=== PATIENT | female | born 1930 | race Caucasian/White ===

== ENCOUNTER 2017-01-17 11:58 | Emergency (ER) | payer MEDICARE, OTHER ==
[~2017-01-17] VITALS: Ht 152.4 cm; Wt 49.9 kg
[~2017-01-17 11:58] MED LIST: AMLODIPINE BESYL5 MG PO; BETAMETHASONE V15 GM TOP; BISCOLAX10 MG PR; CALCITRIOL0.25 MCG PO; CALCIUM ACETAT667 M1 NG; CALCIUM ACETAT667 M1 PO; CALCIUM ACETAT667 MG PO; CEPHALEXIN500 MG PO; CIPRO500 MG PO; CITRACAL + BON1 EACH PO; CITRACAL PO; HYDRALAZINE HCL25 MG PO; K-TAB10 MEQ PO; KLOR-CON SPRIN10 MEQ PO; LEVOTHROID75 MCG PO; LEVOTHYROXINE50 MCG PO; LIPITOR10 MG PO; LISINOPRIL10 MG PO; LISINOPRIL5 MG PO; MAG6464 MG PO; MAGNESIUM27 MG PO; MAGNESIUM30 MG PO; METOPROLOL SUC100 MG PO; METOPROLOL TART50 MG; MICRO-K10 MEQ PO; MILK OF MA400 MG/5 M PO; MIRALAX119 GM PO; MIRTAZAPINE15 MG PO; MONTELUKAST SOD10 MG PO; MULTIVITAMINS1 EAC7 PO; NORCO 5-325 TA1 EACH PO; NORVASC5 MG PO; OMEGA-3 + D SO1 EACH PO; PRILOSEC20 MG PO; PROPRANOLOL HCL60 M1 PO; PROPRANOLOL PO; QUETIAPINE FUMA25 MG PO; QUETIAPINE FUMA50 MG PO; RANITIDINE HCL150 MG PO; REMERON15 MG PO; ROCALTROL0.25 MCG PO; SEROQUEL25 MG PO; TOPROL XL50 MG; TRAMADOL HCL50 MG PO; TRAZODONE HCL50 MG PO; TYLENOL325 MG PO; [UNRECOGNIZED DRUG - OTHER] PO
--- OUTSIDE RECORDS SUMMARY | 2017-01-17 12:37 | XMS ---
Demographics + + + | Address | [address] | | | [address] | | | [place] [address] | + + + | Preferred Language | Unknown | + + + | Marital Status | Unknown | + + + | Buddhism Affiliation | Unknown | + + + | Race | Unknown | + + + | Ethnic Group | Unknown | + + + Author + + + | Author | [facility] | + + + | Organization | [facility] | + + + | Address | 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 | 177185504 | | | hypothyroi | | | | | | | | dism | | | | | | +---------+ + + +--------+ + + | Problem | Hypertensi | | I10 | | Active | 21535648 | | | on | | | | | | +---------+ + + +--------+ + + | 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 | 40152910 | | | hatemia | | | | | | +---------+ + + +--------+ + + | Problem | Hypertensi | I11.9 | | | Active | 04630655 | | | ve | | | | | | | | arterioscl | | | | | | | | erotic | | | | | | | | cardiovasc | | | | | | | | ular | | | | | | | | disease | | | | | | +---------+ + + +--------+ + + | Problem | CKD | N18.3 | | | Active | 120325658 | | | (chronic | | | | | | | | kidney | | | | | | | | disease), | | | | | | | | stage 3 | | | | | | | | (moderate) | | | | | | +---------+ + + +--------+ + + | Problem | 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 | 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 | | | hypoparath | | | | | | | | yroidism | | | | | | +---------+ + + +--------+ + + | Problem | Gastroesop | K21.9 | | | Active | 853181696 | | | hageal | | | | | | | | reflux | | | | | | | | disease | | | | | | | | without | | | | | | | | esophagiti | | | | | | | | s | | | | | | +---------+ + + +--------+ + + | Problem | Impaired | | R73.01 | | Active | 377511111 | | | fasting | | | | | | | | glucose | | | | | | +---------+ + + +--------+ + + ALLERGIES Unknown Allergies SOCIAL HISTORY No smoking Hx information available PLAN OF CARE VITAL SIGNS MEDICATIONS Unknown Medications RESULTS No Results PROCEDURES No Known procedures IMMUNIZATIONS No Known Immunizations"
--- OUTSIDE RECORDS SUMMARY | 2017-01-17 12:37 | XMS ---
Demographics + + + | Address | [address] | | | [address] | | | [place] [address] | + + + | Preferred Language | Unknown | + + + | Marital Status | Unknown | + + + | Church Affiliation | Unknown | + + + | Race | Unknown | + + + | Ethnic Group | Unknown | + + + Author + + + | Author | [facility] | + + + | Organization | [facility] | + + + | Address | 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.51 | | Active | 1667390 | | | ia | | | | | | +---------+ + + +--------+ + + | 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 | 099467516 | | | hypothyroi | | | | | | | | dism | | | | | | +---------+ + + +--------+ + + | Problem | Hypertensi | | I10 | | Active | 85050145 | | | on | | | | | | +---------+ + + +--------+ + + | 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 | 89835663 | | | hatemia | | | | | | +---------+ + + +--------+ + + | Problem | Hypertensi | I11.9 | | | Active | 50262886 | | | ve | | | [...] | N18.3 | | | Active | 366469284 | | | (chronic | | | [...] | | E20.8 | | Active | 67488982 | | | hypoparath | | | | | | | | yroidism | | | | | | +---------+ + + +--------+ + + | Problem | Gastroesop | K21.9 | | | Active | 156638736 | | | hageal | | | [...] | | R73.01 | | Active | 489100913 | | | fasting | | | | | | | | glucose | | | | | | +---------+ + + +--------+ + + ALLERGIES Unknown Allergies SOCIAL HISTORY No smoking Hx information available PLAN OF CARE VITAL SIGNS MEDICATIONS + + + + +--------+ + +--------+ | Medicati | Instruct | Dosage | Frequenc | Start | End Date | Duration | Status | | on | ions | | y | Date | | | | + + + + +--------+ + +--------+ | Ranitidi | Orally | 1 tablet | 12h | | | 30 days | Active | | ne HCl | Twice a | | | | | | | | 150 MG | day | | | | | | | + + + + +--------+ + +--------+ | Calcitri | Orally | 1 | 24h | | | 30 days | Active | | ol 0.25 | Once a | capsule | | | | | | | MCG | day | | | | | | | + + + + +--------+ + +--------+ | Toprol | Orally | 1 tablet | 24h | | | 30 days | Active | | XL 100 | Once a | | | | | | | | MG | day | | | | | | | + + + + +--------+ + +--------+ RESULTS No Results PROCEDURES No Known procedures IMMUNIZATIONS No Known Immunizations"
--- OUTSIDE RECORDS SUMMARY | 2017-01-17 12:37 | XMS ---
Demographics + + + | Address | [address] | | | [address] | | | [place] [address] | + + + | Preferred Language | Unknown | + + + | Marital Status | Unknown | + + + | Caodaism Affiliation | Unknown | + + + | Race | Unknown | + + + | Ethnic Group | Unknown | + + + Author + + + | Author | [facility] | + + + | Organization | [facility] | + + + | Address | 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.51 | | Active | 7709639 | | | ia | | | | | | +---------+ + + +--------+ + + | 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 | 082755454 | | | hypothyroi | | | | | | | | dism | | | | | | +---------+ + + +--------+ + + | Problem | Hypertensi | | I10 | | Active | 55079998 | | | on | | | | | | +---------+ + + +--------+ + + | 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 | 34047951 | | | hatemia | | | | | | +---------+ + + +--------+ + + | Problem | Hypertensi | I11.9 | | | Active | 50793726 | | | ve | | | [...] | N18.3 | | | Active | 415796756 | | | (chronic | | | [...] | | E20.8 | | Active | 93333349 | | | hypoparath | | | | | | | | yroidism | | | | | | +---------+ + + +--------+ + + | Problem | Gastroesop | K21.9 | | | Active | 920734916 | | | hageal | | | [...] | | R73.01 | | Active | 371197644 | | | fasting | | | | | | | | glucose | | | | | | +---------+ + + +--------+ + + ALLERGIES Unknown Allergies SOCIAL HISTORY No smoking Hx information available PLAN OF CARE VITAL SIGNS MEDICATIONS Unknown Medications RESULTS No Results PROCEDURES No Known procedures IMMUNIZATIONS No Known Immunizations"
--- OUTSIDE RECORDS SUMMARY | 2017-01-17 12:37 | XMS ---
Demographics + + + | Address | [address] | | | [address] | | | [place] [address] | + + + | Preferred Language | Unknown | + + + | Marital Status | Unknown | + + + | Taoist Affiliation | Unknown | + + + | Race | Unknown | + + + | Ethnic Group | Unknown | + + + Author + + + | Author | [facility] | + + + | Organization | [facility] | + + + | Address | 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.51 | | Active | 2750768 | | | ia | | | | | | +---------+ + + +--------+ + + | 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 | 632257255 | | | hypothyroi | | | | | | | | dism | | | | | | +---------+ + + +--------+ + + | Problem | Hypertensi | | I10 | | Active | 31782923 | | | on | | | | | | +---------+ + + +--------+ + + | 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 | 93997408 | | | hatemia | | | | | | +---------+ + + +--------+ + + | Problem | Hypertensi | I11.9 | | | Active | 85756621 | | | ve | | | [...] | N18.3 | | | Active | 503893914 | | | (chronic | | | [...] | | E20.8 | | Active | 53174397 | | | hypoparath | | | | | | | | yroidism | | | | | | +---------+ + + +--------+ + + | Problem | Gastroesop | K21.9 | | | Active | 665587792 | | | hageal | | | [...] | | R73.01 | | Active | 498780227 | | | fasting | | | | | | | | glucose | | | | | | +---------+ + + +--------+ + + ALLERGIES + + + + +--------+ | Substance | Reaction | Event Type | Date | Status | + + + + +--------+ | Trazodone | GI | Drug Allergy | 27 Winston, 2017 | Active | + + + + +--------+ | Codeine | GI | Drug Allergy | Oct, | Active | + + + + +--------+ SOCIAL HISTORY No smoking Hx information available PLAN OF CARE + +---------+ | Activity | Details | + +---------+ +---+ | | +---+ + + + | Follow Up | 1 Week Reason:null | + + + | Pending Test | Urinalysis w/ C + S if Indicated | + + + VITAL SIGNS + + + + | Height | 62 in | 2016-10-29 | + + + + | Weight | 105.1 lbs | 2016-10-29 | + + + + | BMI | 19.22 kg/m2 | 2016-10-29 | + + + + | Heart Rate | 72 /min | 2016-10-29 | + + + + | Blood pressure systolic | 156 mm Hg | 2016-10-29 | + + + + | Blood pressure diastolic | 60 mm Hg | 2016-10-29 | + + + + MEDICATIONS + + + + + + + +--------+ | Medicati | Instruct | Dosage | Frequenc | Start | End Date | Duration | Status | | on | ions | | y | Date | | | | + + + + + + + +--------+ | Amlodipi | Orally | 1 tablet | 24h | | | | Active | | ne | Once a | | | | | | | | Besylate | day | | | | | | | | 5 MG | | | | | | | | + + + + + + + +--------+ | Ranitidi | Orally | 1 tablet | 12h | | | | Active | | ne HCl | Twice a | | | | | | | | 150 MG | day | | | | | | | + + + + + + + +--------+ | Zofran 8 | Orally | 1 tablet | | 01 Winston, | | 10 days | Active | | MG | three | | | 2017 | | | | | | times a | | | | | | | | | day prn | | | | | | | | | nausea | | | | | | | + + + + + + + +--------+ | Toprol | Orally | 1 tablet | 24h | | | | Active | | XL 100 | Once a | | | | | | | | MG | day | | | | | | | + + + + + + + +--------+ | Levothyr | Orally | 1 tablet | 24h | | | | Active | | oxine | Once a | every | | | | | | | Sodium | day | morning | | | | | | | 50 MCG | | on an | | | | | | | | | empty | | | | | | | | | stomach | | | | | | + + + + + + + +--------+ | Ciproflo | Orally | 1 tablet | 12h | | | | Active | | xacin | every 12 | | | | | | | | HCl 250 | hrs | | | | | | | | MG | | | | | | | | + + + + + + + +--------+ | Calcium | Orally | 1 tablet | | | 22 Jamshid, | 30 days | Active | | Acetate | two | | | | 2018 | | | | (Phos | times a | | | | | | | | Binder) | day with | | | | | | | | 667 MG | a meal | | | | | | | + + + + + + + +--------+ | Calcitri | Orally | 1 | 24h | | | | Active | | ol 0.25 | Once a | capsule | | | | | | | MCG | day | | | | | | | + + + + + + + +--------+ | Acetamin | Orally | 1 tablet | 6h | | | | Active | | ophen | every 6 | as | | | | | | | 650 MG | hrs | needed | | | | | | + + + + + + + +--------+ | Quetiapi | Orally | 1 tablet | | | | | Active | | ne | Once a | | | | | | | | Fumarate | day QHS | | | | | | | | 25 MG | | | | | | | | + + + + + + + +--------+ | Risperid | Orally | 1 tablet | | | | 30 days | Active | | one 0.25 | q8am and | | | | | | | | MG | q5pm | | | | | | | + + + + + + + +--------+ | MiraLax | Orally | 1 packet | | | | | Active | | 17 | Once a | mixed | | | | | | | | day prn | with 8 | | | | | | | | constipa | ounces | | | | | | | | tion | of fluid | | | | | | + + + + + + + +--------+ | Ensure - | | | | | | | Active | + + + + + + + +--------+ RESULTS No Results PROCEDURES + + + + + | Procedure | Date Ordered | Related Diagnosis | Body Site | + + + + + | Office Visit, Est | October 29, 2016 | | | | Pt., Level 4 | | | | + + + + + IMMUNIZATIONS No Known Immunizations"
--- OUTSIDE RECORDS SUMMARY | 2017-01-17 12:37 | XMS ---
Demographics + + + | Address | [address] | | | [address] | | | [place] [address] | + + + | Preferred Language | Unknown | + + + | Marital Status | Unknown | + + + | Alevism Affiliation | Unknown | + + + | Race | Unknown | + + + | Ethnic Group | Unknown | + + + Author + + + | Author | [facility] | + + + | Organization | [facility] | + + + | Address | 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 | | Active | 9346738 | | | ia | | | | | | +---------+ + + +--------+ + + | 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 | 849217342 | | | hypothyroi | | | | | | | | dism | | | | | | +---------+ + + +--------+ + + | Problem | Hypertensi | | I10 | | Active | 87697082 | | | on | | | | | | +---------+ + + +--------+ + + | 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 | 69689379 | | | hatemia | | | | | | +---------+ + + +--------+ + + | Problem | Hypertensi | I11.9 | | | Active | 54243850 | | | ve | | | [...] | N18.3 | | | Active | 839316388 | | | (chronic | | | [...] | | E20.8 | | Active | 81106854 | | | hypoparath | | | | | | | | yroidism | | | | | | +---------+ + + +--------+ + + | Problem | Gastroesop | K21.9 | | | Active | 095187242 | | | hageal | | | [...] | | R73.01 | | Active | 547572154 | | | fasting | | | | | | | | glucose | | | | | | +---------+ + + +--------+ + + ALLERGIES Unknown Allergies SOCIAL HISTORY No smoking Hx information available PLAN OF CARE VITAL SIGNS MEDICATIONS Unknown Medications RESULTS No Results PROCEDURES No Known procedures IMMUNIZATIONS No Known Immunizations"
--- OUTSIDE RECORDS SUMMARY | 2017-01-17 12:37 | XMS ---
Demographics + + + | Address | [address] | | | [address] | | | [place] [address] | + + + | Preferred Language | Unknown | + + + | Marital Status | Unknown | + + + | Judaism Affiliation | Unknown | + + + | Race | Unknown | + + + | Ethnic Group | Unknown | + + + Author + + + | Author | [facility] | + + + | Organization | [facility] | + + + | Address | [address] | | | [place] [address] | + + + | Phone | | + + + Care Team Providers + + + + | Care Hazardous Material Technician Name | Role | Phone | + + + + Unavailable | Unavailable | + + + + PROBLEMS +---------+ + + +--------+ + + | Type | Condition | ICD9-CM | [id number] | Onset | Condition | SNOMED | | | | Code | Code | Dates | Status | Code | +---------+ + + +--------+ + + | Problem | Hyperchole | | E78.0 | | Active | 93110045 | | | sterolemia | | | | | | +---------+ + + +--------+ + + | Problem | Hypocalcem | | E83.51 | | Active | 2107089 | | | ia | | | | | | +---------+ + + +--------+ + + | 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 | 709941603 | | | hypothyroi | | | | | | | | dism | | | | | | +---------+ + + +--------+ + + | Problem | Hypertensi | | I10 | | Active | 23102876 | | | on | | | | | | +---------+ + + +--------+ + + | 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 | 52982433 | | | hatemia | | | | | | +---------+ + + +--------+ + + | Problem | Hypertensi | I11.9 | | | Active | 43537399 | | | ve | | | [...] | N18.3 | | | Active | 019918597 | | | (chronic | | | [...] | | E20.8 | | Active | 00911293 | | | hypoparath | | | | | | | | yroidism | | | | | | +---------+ + + +--------+ + + | Problem | Gastroesop | K21.9 | | | Active | 236522053 | | | hageal | | | [...] | | R73.01 | | Active | 550073976 | | | fasting | | | | | | | | glucose | | | | | | +---------+ + + +--------+ + + ALLERGIES Unknown Allergies SOCIAL HISTORY No smoking Hx information available PLAN OF CARE VITAL SIGNS MEDICATIONS Unknown Medications RESULTS No Results PROCEDURES No Known procedures IMMUNIZATIONS No Known Immunizations"
--- OUTSIDE RECORDS SUMMARY | 2017-01-17 12:37 | XMS ---
Demographics + + + | Address | [address] | | | [address] | | | [place] [address] | + + + | Preferred Language | Unknown | + + + | Marital Status | Unknown | + + + | Evangelical Affiliation | Unknown | + + + | Race | Unknown | + + + | Ethnic Group | Unknown | + + + Author + + + | Author | [facility] | + + + | Organization | [facility] | + + + | Address | [address] | | | [place] [address] | + + + | Phone | | + + + Care Team Providers + + + + | Care Direct Of Real Estate Name | Role | Phone | + + + + Unavailable | Unavailable | + + + + PROBLEMS +---------+ + + +--------+ + + | Type | Condition | ICD9-CM | [id number] | Onset | Condition | SNOMED | | | | Code | Code | Dates | Status | Code | +---------+ + + +--------+ + + | Problem | Hyperchole | | E78.0 | | Active | 99701230 | | | sterolemia | | | | | | +---------+ + + +--------+ + + | Problem | Hypocalcem | | E83.51 | | Active | 9124350 | | | ia | | | | | | +---------+ + + +--------+ + + | 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 | 205785468 | | | hypothyroi | | | | | | | | dism | | | | | | +---------+ + + +--------+ + + | Problem | Hypertensi | | I10 | | Active | 78530535 | | | on | | | | | | +---------+ + + +--------+ + + | 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 | 47551378 | | | hatemia | | | | | | +---------+ + + +--------+ + + | Problem | Hypertensi | I11.9 | | | Active | 49046430 | | | ve | | | [...] | N18.3 | | | Active | 842257025 | | | (chronic | | | [...] | | E20.8 | | Active | 53414311 | | | hypoparath | | | | | | | | yroidism | | | | | | +---------+ + + +--------+ + + | Problem | Gastroesop | K21.9 | | | Active | 435883142 | | | hageal | | | [...] | | R73.01 | | Active | 918894477 | | | fasting | | | | | | | | glucose | | | | | | +---------+ + + +--------+ + + ALLERGIES + + + + +--------+ | Substance | Reaction | Event Type | Date | Status | + + + + +--------+ | Trazodone | GI | Drug Allergy | 01 Winston, 2017 | Active | + + [...] + + + | Pending Test | Comp. Metabolic Panel (14) | + + + | Pending Test | Phosphorus Level | + + + VITAL SIGNS + + + + | Height | 62 in | 2016-10-03 | + + + + | Weight | 109.8 lbs | 2016-10-03 | + + + + | BMI | 20.08 kg/m2 | 2016-10-03 | + + + + | Temperature | 98.0 degrees Fahrenheit | 2016-10-03 | + + + + | Heart Rate | 62 /min | 2016-10-03 | + + + + | Blood pressure systolic | 145 mm Hg | 2016-10-03 | + + + + | Blood pressure diastolic | 55 mm Hg | 2016-10-03 | + + + + MEDICATIONS + [...] | | | | 25 MG | prn | | | | | | | | | insomnia | | | | | | | [...] | | | | Active | | Acetate | once a | | | | | | | | (Phos | day with | | | | | | | | Binder) | meals | | | | | | | | 667 MG | | | | | | [...] + + + + + +--------+ | ProOmega | oral | 2 | 24h | | | | Active | | 1250 mg | Once a | capsules | | | | | | | | day | | | | | [...] | + + + + + | High Complexity | October 03, 2016 | | | + + + + + IMMUNIZATIONS No Known Immunizations"
--- OUTSIDE RECORDS SUMMARY | 2017-01-17 12:37 | XMS ---
Demographics + + + | Address | [address] | | | [address] | | | [place] [address] | + + + | Preferred Language [...] | + + + | Organization | [facility] | + + + | Address | [address] | | | [place] [address] | + + + | Phone | | + + + Care Team Providers + + + + | Care Crm Solution Architect Name | Role | Phone | + + + + Unavailable | Unavailable | + + + + PROBLEMS +---------+ + + +--------+ + + | Type | Condition | ICD9-CM | [id number] | Onset | Condition | SNOMED | | | | Code | Code | Dates | Status | Code | +---------+ + + +--------+ + + | Problem | Hyperchole | | E78.0 | | Active | 41681402 | | | sterolemia | | | | | | +---------+ + + +--------+ + + | Problem | Hypocalcem | | E83.51 | | Active | 9107793 | | | ia | | | | | | +---------+ + + +--------+ + + | 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 | 663088514 | | | hypothyroi | | | | | | | | dism | | | | | | +---------+ + + +--------+ + + | Problem | Hypertensi | | I10 | | Active | 72253666 | | | on | | | | | | +---------+ + + +--------+ + + | 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 | 71766237 | | | hatemia | | | | | | +---------+ + + +--------+ + + | Problem | Hypertensi | I11.9 | | | Active | 39042496 | | | ve | | | [...] | N18.3 | | | Active | 199372192 | | | (chronic | | | [...] | | E20.8 | | Active | 30709736 | | | hypoparath | | | | | | | | yroidism | | | | | | +---------+ + + +--------+ + + | Problem | Gastroesop | K21.9 | | | Active | 810512695 | | | hageal | | | [...] | | R73.01 | | Active | 110312236 | | | fasting | | | | | | | | glucose | | | | | | +---------+ + + +--------+ + + ALLERGIES Unknown Allergies SOCIAL HISTORY No smoking Hx information available PLAN OF CARE VITAL SIGNS MEDICATIONS Unknown Medications RESULTS No Results PROCEDURES No Known procedures IMMUNIZATIONS No Known Immunizations"
--- OUTSIDE RECORDS SUMMARY | 2017-01-17 12:37 | XMS ---
Demographics + + + | Address | [address] | | | [address] | | | [place] [address] | + + + | Preferred Language | Unknown | + + + | Marital Status | Unknown | + + + | Taoism Affiliation | Unknown | + + + | Race | Unknown | + + + | Ethnic Group | Unknown | + + + Author + + + | Author | [facility] | + + + | Organization | [facility] | + + + | Address | [address] | | | [place] [address] | + + + | Phone | | + + + Care Team Providers + + + + | Care Geometry Teacher Name | Role | Phone | + + + + Unavailable | Unavailable | + + + + PROBLEMS +---------+ + + +--------+ + + | Type | Condition | ICD9-CM | [id number] | Onset | Condition | SNOMED | | | | Code | Code | Dates | Status | Code | +---------+ + + +--------+ + + | Problem | Hyperchole | | E78.0 | | Active | 14050428 | | | sterolemia | | | | | | +---------+ + + +--------+ + + | Problem | Hypocalcem | | E83.51 | | Active | 1733115 | | | ia | | | | | | +---------+ + + +--------+ + + | 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 | 033727637 | | | hypothyroi | | | | | | | | dism | | | | | | +---------+ + + +--------+ + + | Problem | Hypertensi | | I10 | | Active | 10293112 | | | on | | | | | | +---------+ + + +--------+ + + | 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 | 03324749 | | | hatemia | | | | | | +---------+ + + +--------+ + + | Problem | Hypertensi | I11.9 | | | Active | 43808225 | | | ve | | | [...] | N18.3 | | | Active | 003611087 | | | (chronic | | | [...] | | E20.8 | | Active | 52607815 | | | hypoparath | | | | | | | | yroidism | | | | | | +---------+ + + +--------+ + + | Problem | Gastroesop | K21.9 | | | Active | 641863371 | | | hageal | | | [...] | | R73.01 | | Active | 515116222 | | | fasting | | | | | | | | glucose | | | | | | +---------+ + + +--------+ + + ALLERGIES Unknown Allergies SOCIAL HISTORY No smoking Hx information available PLAN OF CARE VITAL SIGNS MEDICATIONS + + + + + + [...] | Orally | 1 tablet | | 09 Winston, | | 30 | Active | | one 0.25 | Once a | | | 2017 | | day(s) | | | MG | day qam | | | | | | | [...] + + +--------+ RESULTS No Results PROCEDURES No Known procedures IMMUNIZATIONS No Known Immunizations"
--- OUTSIDE RECORDS SUMMARY | 2017-01-17 12:37 | XMS ---
Demographics + + + | Address | [address] | | | [address] | | | [place] [address] | + + + | Preferred Language | Unknown | + + + | Marital Status | Unknown | + + + | Methodist Affiliation | Unknown | + + + | Race | Unknown | + + + | Ethnic Group | Unknown | + + + Author + + + | Author | [facility] | + + + | Organization | [facility] | + + + | Address | 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 | 994084521 | | | hypothyroi | | | | | | | | dism | | | | | | +---------+ + + +--------+ + + | Problem | Hypertensi | | I10 | | Active | 13959024 | | | on | | | | | | +---------+ + + +--------+ + + | 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 | 58841932 | | | hatemia | | | | | | +---------+ + + +--------+ + + | Problem | Hypertensi | I11.9 | | | Active | 40866574 | | | ve | | | [...] | N18.3 | | | Active | 334620443 | | | (chronic | | | [...] | | E20.8 | | Active | 34782049 | | | hypoparath | | | | | | | | yroidism | | | | | | +---------+ + + +--------+ + + | Problem | Gastroesop | K21.9 | | | Active | 408250997 | | | hageal | | | [...] | | R73.01 | | Active | 675463702 | | | fasting | | | | | | | | glucose | | | | | | +---------+ + + +--------+ + + ALLERGIES + + + + +--------+ | Substance | Reaction | Event Type | Date | Status | + + + + +--------+ | Trazodone | GI | Drug Allergy | 18 Jamshid, 2017 | Active | + + + + +--------+ | Codeine | GI | Drug Allergy | Nov, | Active | + + + + [...] + | Height | 62 in | 2016-11-19 | + + + + | Weight | 110.7 lbs | 2016-11-19 | + + + + | BMI | 20.25 kg/m2 | 2016-11-19 | + + + + | Heart Rate | 76 /min | 2016-11-19 | + + + + | Blood pressure systolic | 140 mm Hg | 2016-11-19 | + + + + | Blood pressure diastolic | 55 mm Hg | 2016-11-19 | + + + + MEDICATIONS + [...] + + + + + +--------+ | Potassiu | orally | 1 tablet | 24h | 18 Nov, | 17 Dec, | 30 days | Active | | m | once a | | | 2017 | 2017 | | | | Chloride | day | | | | | | | | 10 | | | | | | | [...] + + + + + +--------+ | Hydrocor | External | 1 | 12h | | | | Active | | tisone | ly Twice | applicat | | | | | | | 2.5 % | a day | ion to | | | | | | | | | affected | | | | | | | | | area | | | | | | + + + + + + + +--------+ | Calcium | Orally | 1 tablet | | | | 30 days | Active | | Acetate | two | | | | | | | | (Phos | times [...] + + | Office Visit, Est | November 19, 2016 | | | | Pt., Level 4 | | | | + + + + + IMMUNIZATIONS No Known Immunizations"
--- OUTSIDE RECORDS SUMMARY | 2017-01-17 12:37 | XMS ---
Demographics + + + | Address | [address] | | | [address] | | | [place] [address] | + + + | Preferred Language | Unknown | + + + | Marital Status | Unknown | + + + | Confucianist Affiliation | Unknown | + + + | Race | Unknown | + + + | Ethnic Group | Unknown | + + + Author + + + | Author | [facility] | + + + | Organization | [facility] | + + + | Address | [address] | | | [place] [address] | + + + | Phone | | + + + Care Team Providers + + + + | Care Teacher Selection Specialist Name | Role | Phone | + + + + Unavailable | Unavailable | + + + + PROBLEMS +---------+ + + +--------+ + + | Type | Condition | ICD9-CM | [id number] | Onset | Condition | SNOMED | | | | Code | Code | Dates | Status | Code | +---------+ + + +--------+ + + | Problem | Hyperchole | | E78.0 | | Active | 95467449 | | | sterolemia | | | | | | +---------+ + + +--------+ + + | Problem | Hypocalcem | | E83.51 | | Active | 1277717 | | | ia | | | | | | +---------+ + + +--------+ + + | 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 | 292267854 | | | hypothyroi | | | | | | | | dism | | | | | | +---------+ + + +--------+ + + | Problem | Hypertensi | | I10 | | Active | 81635184 | | | on | | | | | | +---------+ + + +--------+ + + | 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 | 88218655 | | | hatemia | | | | | | +---------+ + + +--------+ + + | Problem | Hypertensi | I11.9 | | | Active | 11671587 | | | ve | | | [...] | N18.3 | | | Active | 601285847 | | | (chronic | | | [...] | | E20.8 | | Active | 86066017 | | | hypoparath | | | | | | | | yroidism | | | | | | +---------+ + + +--------+ + + | Problem | Gastroesop | K21.9 | | | Active | 627926445 | | | hageal | | | [...] | | R73.01 | | Active | 851257722 | | | fasting | | | | | | | | glucose | | | | | | +---------+ + + +--------+ + + ALLERGIES Unknown Allergies SOCIAL HISTORY No smoking Hx information available PLAN OF CARE VITAL SIGNS MEDICATIONS Unknown Medications RESULTS No Results PROCEDURES No Known procedures IMMUNIZATIONS No Known Immunizations"
--- OUTSIDE RECORDS SUMMARY | 2017-01-17 12:37 | XMS ---
Demographics + + + | Address | [address] | | | [address] | | | [place] [address] | + + + | Preferred Language | Unknown | + + + | Marital Status | Unknown | + + + | Faith Affiliation | Unknown | + + + | Race | Unknown | + + + | Ethnic Group | Unknown | + + + Author + + + | Author | [facility] | + + + | Organization | [facility] | + + + | Address | [address] | | | [place] [address] | + + + | Phone | | + + + Care Team Providers + + + + | Care Occupational Health Nurse Name | Role | Phone | + + + + Unavailable | Unavailable | + + + + PROBLEMS +---------+ + + +--------+ + + | Type | Condition | ICD9-CM | [id number] | Onset | Condition | SNOMED | | | | Code | Code | Dates | Status | Code | +---------+ + + +--------+ + + | Problem | Hyperchole | | E78.0 | | Active | 54062190 | | | sterolemia | | | | | | +---------+ + + +--------+ + + | Problem | Hypocalcem | | E83.51 | | Active | 3536849 | | | ia | | | | | | +---------+ + + +--------+ + + | 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 | 088804916 | | | hypothyroi | | | | | | | | dism | | | | | | +---------+ + + +--------+ + + | Problem | Hypertensi | | I10 | | Active | 06086889 | | | on | | | | | | +---------+ + + +--------+ + + | 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 | 23738191 | | | hatemia | | | | | | +---------+ + + +--------+ + + | Problem | Hypertensi | I11.9 | | | Active | 51358425 | | | ve | | | [...] | N18.3 | | | Active | 199137207 | | | (chronic | | | [...] | | E20.8 | | Active | 07982629 | | | hypoparath | | | | | | | | yroidism | | | | | | +---------+ + + +--------+ + + | Problem | Gastroesop | K21.9 | | | Active | 023627692 | | | hageal | | | [...] | | R73.01 | | Active | 976081161 | | | fasting | | | | | | | | glucose | | | | | | +---------+ + + +--------+ + + ALLERGIES + + + + +--------+ | Substance | Reaction | Event Type | Date | Status | + + + + +--------+ | Trazodone | GI | Drug Allergy | 01 Aug, 2017 | Active | + + + + +--------+ | Codeine | GI | Drug Allergy | Dec, | Active | + + + + +--------+ SOCIAL HISTORY No smoking Hx information available PLAN OF CARE + +---------+ | Activity | Details | + +---------+ +---+ | | +---+ + + + | Follow Up | 2 Weeks Reason:null | + + + | Pending Test | Urinalysis w/ C + S if Indicated | + + + VITAL SIGNS + + + + | Height | 62 in | 2016-12-03 | + + + + | Weight | 112.5 lbs | 2016-12-03 | + + + + | BMI | 20.57 kg/m2 | 2016-12-03 | + + + + | Heart Rate | 72 /min | 2016-12-03 | + + + + | Blood pressure systolic | 141 mm Hg | 2016-12-03 | + + + + | Blood pressure diastolic | 49 mm Hg | 2016-12-03 | + + + + MEDICATIONS + [...] orally | 1 tablet | 24h | | | 30 days | Active | | m | once a | | | | | | | | Chloride | day [...] + + + + + +--------+ | Amoxicil | Orally | 1 | 8h | 27 Nov, | 6 Dec, | 10 | Active | | carlos 500 | every 8 | capsule | | 2017 | 2017 | day(s) | | | MG | hrs | | | | | [...] + + | Office Visit, Est | Dec 03, 2016 | | | | Pt., Level 4 | | | | + + + + + IMMUNIZATIONS No Known Immunizations"
--- OUTSIDE RECORDS SUMMARY | 2017-01-17 12:38 | XMS ---
Demographics + + + | Address | [address] | | | [address] | | | [place] [address] | + + + | Preferred Language | Unknown | + + + | Marital Status | Unknown | + + + | Jewish Affiliation | Unknown | + + + | Race | Unknown | + + + | Ethnic Group | Unknown | + + + Author + + + | Author | [facility] | + + + | Organization | [facility] | + + + | Address | [address] | | | [place] [address] | + + + | Phone | | + + + Care Team Providers + + + + | Care Director Apparel Name | Role | Phone | + + + + Unavailable | Unavailable | + + + + PROBLEMS +---------+ + + +--------+ + + | Type | Condition | ICD9-CM | [id number] | Onset | Condition | SNOMED | | | | Code | Code | Dates | Status | Code | +---------+ + + +--------+ + + | Problem | Hyperchole | | E78.0 | | Active | 01852374 | | | sterolemia | | | | | | +---------+ + + +--------+ + + | Problem | Hypocalcem | | E83.51 | | Active | 5472770 | | | ia | | | | | | +---------+ + + +--------+ + + | 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 | 941656441 | | | hypothyroi | | | | | | | | dism | | | | | | +---------+ + + +--------+ + + | Problem | Hypertensi | | I10 | | Active | 69787319 | | | on | | | | | | +---------+ + + +--------+ + + | 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 | 60573536 | | | hatemia | | | | | | +---------+ + + +--------+ + + | Problem | Hypertensi | I11.9 | | | Active | 88349859 | | | ve | | | [...] | N18.3 | | | Active | 649247094 | | | (chronic | | | [...] | | E20.8 | | Active | 58970792 | | | hypoparath | | | | | | | | yroidism | | | | | | +---------+ + + +--------+ + + | Problem | Gastroesop | K21.9 | | | Active | 797942339 | | | hageal | | | [...] | | R73.01 | | Active | 195534632 | | | fasting | | | | | | | | glucose | | | | | | +---------+ + + +--------+ + + ALLERGIES Unknown Allergies SOCIAL HISTORY No smoking Hx information available PLAN OF CARE VITAL SIGNS MEDICATIONS Unknown Medications RESULTS No Results PROCEDURES No Known procedures IMMUNIZATIONS No Known Immunizations"
--- OUTSIDE RECORDS SUMMARY | 2017-01-17 12:38 | XMS ---
Demographics + + + | Address | [address] | | | [address] | | | [place] [address] | + + + | Preferred Language | Unknown | + + + | Marital Status | Unknown | + + + | Sikhism Affiliation | Unknown | + + + | Race | Unknown | + + + | Ethnic Group | Unknown | + + + Author + + + | Author | [facility] | + + + | Organization | [facility] | + + + | Address | [address] | | | [place] [address] | + + + | Phone | | + + + Care Team Providers + + + + | Care Senior Support Engineer Name | Role | Phone | + + + + Unavailable | Unavailable | + + + + PROBLEMS + + + + + + + + | Type | Condition | ICD9-CM | RVP56-KE | Onset | Condition | SNOMED | | | | Code | Code | Dates | Status | Code | + + + + + + + + | Problem | Hyperchole | | E78.0 | | Active | 81061258 | | | sterolemia | | | | | | + + + + + + + + | Problem | Hypocalcem | | E83.51 | | Active | 5057391 | | | ia | | | | | | + + + + + + + + | 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 | 789223661 | | | hypothyroi | | | | | | | | dism | | | | | | + + + + + + + + | 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, | 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 | | | dementia | | | 2017 | | | | | with | | | | | | | | behavior | | | | | | | | disturbanc | | | | | | | | e | | | | | | + + + + + + + + | Assessment | Confusion | R41.0 | | 26 September, | Active | 59791886 | | | | | | 2017 | | | + + + + + + + + | Problem | Hypertensi | | I10 | | Active | 60480887 | | | on | | | | | | + + + + + + + + | 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 | 83266636 | | | hatemia | | | | | | + + + + + + + + | Problem | Hypertensi | I11.9 | | | Active | 91833544 | | | ve | | | | | | | | arterioscl | | | | | | | | erotic | | | | | | | | cardiovasc | | | | | | | | ular | | | | | | | | disease | | | | | | + + + + + + + + | Problem | CKD | N18.3 | | | Active | 756978303 | | | (chronic | | | | | | | | kidney | | | | | | | | disease), | | | | | | | | stage 3 | | | | | | | | (moderate) | | | | | | + + + + + + + + | Problem | 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 | 43497304 | | | hypoparath | | | | | | | | yroidism | | | | | | + + + + + + + + | Problem | Gastroesop | K21.9 | | | Active | 662296510 | | | hageal | | | | | | | | reflux | | | | | | | | disease | | | | | | | | without | | | | | | | | esophagiti | | | | | | | | s | | | | | | + + + + + + + + | Problem | Impaired | | R73.01 | | Active | 113558980 | | | fasting | | | | | | | | glucose | | | | | | + + + + + + + + ALLERGIES + + + + +--------+ | Substance | Reaction | Event Type | Date | Status | + + + + +--------+ | Trazodone | GI | Drug Allergy | September, | Active | + + + + +--------+ | Codeine | GI | Drug Allergy | September, | Active | + + + + +--------+ SOCIAL HISTORY No smoking Hx information available PLAN OF CARE + +---------+ | Activity | Details | + +---------+ +---+ | | +---+ + + + | Pending Test | Comp. Metabolic Panel (14) | + + + | Pending Test | TSH, 3rd Generation | + + + | Pending Test | Urinalysis w/ C + S if Indicated | + + + | Pending Test | Phosphorus Level | + + + | Pending Test | cbc | + + + | | 2 Weeks,Reason: | + + + VITAL SIGNS + + + + | Height | 62 in | 2016-09-26 | + + + + | Weight | 106.3 lbs | 2016-09-26 | + + + + | BMI | 19.44 kg/m2 | 2016-09-26 | + + + + | Heart Rate | 89 /min | 2016-09-26 | + + + + | Blood pressure systolic | 126 mm Hg | 2016-09-26 | + + + + | Blood pressure diastolic | 82 mm Hg | 2016-09-26 | + + + + MEDICATIONS + + + + +--------+ + +--------+ | Medicati | Instruct | Dosage | Frequenc | Start | End Date | Duration | Status | | on | ions | | y | Date | | | | + + + + +--------+ + +--------+ | MiraLax | Orally | 1 packet | | | | | Active | | 17 | Once a | mixed | | | | | | | | day hold | with 8 | | | | | | | | for | ounces | | | | | | | | diarrhea | of fluid | | | | | | + + + + +--------+ + +--------+ | Toprol | Orally | 1 tablet | 24h | | | | Active | | XL 100 | Once a | | | | | | | | MG | day | | | | | | | + + + + +--------+ + +--------+ | Bisacody | Rectal | 1 | 24h | | | | Active | | l 10 MG | Once a | supposit | | | | | | | | day | ory as | | | | | | | | | needed | | | | | | + + + + +--------+ + +--------+ | Milk of | Orally | 5 ml as | 6h | | | | Active | | Magnesia | Four | needed | | | | | | | 400 | times a | | | | | | | | MG/5ML | day | | | | | | | + + + + +--------+ + +--------+ | Betameth | | | | | | | Active | | asone | | | | | | | | + + + + +--------+ + +--------+ | Macu-Hea | | as | | | | | Active | | lth | | directed | | | | | | | | | daily | | | | | | + + + + +--------+ + +--------+ | Levothyr | Orally | 1 tablet | 24h | | | 30 days | Active | | oxine | Once [...] + + + +--------+ + +--------+ | HydrALAZ | | | | | | | Active | | INE HCl | | | | | | | | | 25 MG | | | | | | | | + + + + +--------+ + +--------+ | Calcium | Orally | 1 tablet | | | | | Active | | Acetate | Three | | | | | | | | (Phos | times a | | | | | | | | Binder) | day with | | | | | | | | 667 MG | meals | | | | | | | + + + + +--------+ + +--------+ | ProOmega | oral | 2 | 24h | | | | Active | | 1250 mg | Once a | capsules | | | | | | | | day | | | | | | | + + + + +--------+ + +--------+ | Ensure - | | | | | | | Active | + + + + +--------+ + +--------+ | Baby | | | | | | | Active | | Powder | | | | | | | | + + + + +--------+ + +--------+ | Ranitidi | Orally | 1 tablet | 12h | | | | Active | | ne HCl | Twice a | | | | | | | | 150 MG | day | | | | | | | + + + + +--------+ + +--------+ | Mirtazap | Orally | 1 tablet | 24h | | | | Active | | ine 15 | Once a | before | | | | | | | MG | day | bedtime | | | | | | | | | in the | | | | | | | | | evening | | | | | | + + + + +--------+ + +--------+ | Acetamin | Orally | 1 tablet | 6h | | | | Active | | ophen | every 6 | as | | | | | | | 650 MG | hrs | needed | | | | | | + + + + +--------+ + +--------+ | Ketocona | | | | | | | Active | | zole 2 % | | | | | | | | + + + + +--------+ + +--------+ | Potassiu | Orally | 1 | | | | | Active | | m | three | capsule | | | | | | | Chloride | times | | | | | | | | 10 MEQ | daily | | | | | | | + + + + +--------+ + +--------+ | Amlodipi | Orally | 1 tablet | 24h | | | 30 | Active | | ne | Once a | | | | | day(s) | | | Besylate | day | [...] + + + +--------+ + +--------+ | Quetiapi | Orally | 1/2 | 24h | | | | Active | | ne | daily | tablet | | | | | | | Fumarate | | in AM 1 | | | | | | | 50 MG | | tablet | | | | | | | | | in PM | | | | | | + + + + +--------+ + +--------+ RESULTS No Results PROCEDURES + + + + + | Procedure | Date Ordered | Related Diagnosis | Body Site | + + + + + | Office Visit, Est | September 26, 2016 | | | | Pt., Level 3 | | | | + + + + + IMMUNIZATIONS No Known Immunizations"
--- OUTSIDE RECORDS SUMMARY | 2017-01-17 12:38 | XMS ---
Demographics + + + | Address | [address] | | | [address] | | | [place] [address] | + + + | Preferred Language | Unknown | + + + | Marital Status | Unknown | + + + | Christian Affiliation | Unknown | + + + | Race | Unknown | + + + | Ethnic Group | Unknown | + + + Author + + + | Author | [facility] | + + + | Organization | [facility] | + + + | Address | [address] | | | [place] [address] | + + + | Phone | | + + + Care Team Providers + + + + | Care Dry Goods Clerk Name | Role | Phone | + + + + Unavailable | Unavailable | + + + + PROBLEMS + + + + + + + + | Type | Condition | ICD9-CM | [id number] | Onset | Condition | SNOMED | | | | Code | Code | Dates | Status | Code | + + + + + + + + | Problem | Hyperchole | | E78.0 | | Active | 77147409 | | | sterolemia | | | | | | + + + + + + + + | Problem | Hypocalcem | | E83.51 | | Active | 6271898 | | | ia | | | | | | + + + + + + + + | 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 | 765425274 | | | hypothyroi | | | | | | | | dism | | | | | | + + + + + + + + | Assessment | 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.39 | | 27 September, | Active | 03935371 | | | hatemia | | | 2017 | | | + + + + + + + + | Problem | Hypertensi | | I10 | | Active | 35766530 | | | on | | | | | | + + + + + + + + | 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 | 64362922 | | | hatemia | | | | | | + + + + + + + + | Problem | Hypertensi | I11.9 | | | Active | 42724913 | | | ve | | | [...] | N18.3 | | | Active | 177439377 | | | (chronic | | | [...] | | E20.8 | | Active | 57729636 | | | hypoparath | | | | | | | | yroidism | | | | | | + + + + + + + + | Problem | Gastroesop | K21.9 | | | Active | 812537006 | | | hageal | | | [...] | | R73.01 | | Active | 760688263 | | | fasting | | | | | | | | glucose | | | | | | + + + + + + + + ALLERGIES Unknown Allergies SOCIAL HISTORY No smoking Hx information available PLAN OF CARE + +---------+ | Activity | Details | + +---------+ +---+ | | +---+ + + + | Pending Test | Basic Metabolic Panel | + + + | Pending Test | Calcium Level | + + + | Pending Test | Phosphorus Level | + + + | | ,Reason: | + + + VITAL SIGNS MEDICATIONS Unknown Medications RESULTS No Results PROCEDURES No Known procedures IMMUNIZATIONS No Known Immunizations"
--- OUTSIDE RECORDS SUMMARY | 2017-01-17 12:38 | XMS ---
Demographics + + + | Address | [address] | | | [address] | | | [place] [address] | + + + | Preferred Language | Unknown | + + + | Marital Status | Unknown | + + + | Temple Affiliation | Unknown | + + + | Race | Unknown | + + + | Ethnic Group | Unknown | + + + Author + + + | Author | [facility] | + + + | Organization | [facility] | + + + | Address | [address] | | | [place] [address] | + + + | Phone | | + + + Care Team Providers + + + + | Care Binman Name | Role | Phone | + + + + Unavailable | Unavailable | + + + + PROBLEMS +---------+ + + +--------+ + + | Type | Condition | ICD9-CM | [id number] | Onset | Condition | SNOMED | | | | Code | Code | Dates | Status | Code | +---------+ + + +--------+ + + | Problem | Hyperchole | | E78.0 | | Active | 10721527 | | | sterolemia | | | | | | +---------+ + + +--------+ + + | Problem | Hypocalcem | | E83.51 | | Active | 9427894 | | | ia | | | | | | +---------+ + + +--------+ + + | 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 | 643403471 | | | hypothyroi | | | | | | | | dism | | | | | | +---------+ + + +--------+ + + | Problem | Hypertensi | | I10 | | Active | [id number] | | | on | | | | | | +---------+ + + +--------+ + + | 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 | [id number] | | | hatemia | | | | | | +---------+ + + +--------+ + + | Problem | Hypertensi | I11.9 | | | Active | [id number] | | | ve | | | [...] | N18.3 | | | Active | [id number] | | | (chronic | | | [...] | | E20.8 | | Active | [id number] | | | hypoparath | | | | | | | | yroidism | | | | | | +---------+ + + +--------+ + + | Problem | Gastroesop | K21.9 | | | Active | [id number] | | | hageal | | | [...] | | R73.01 | | Active | [id number] | | | fasting | | | | | | | | glucose | | | | | | +---------+ + + +--------+ + + ALLERGIES Unknown Allergies SOCIAL HISTORY No smoking Hx information available PLAN OF CARE VITAL SIGNS MEDICATIONS Unknown Medications RESULTS No Results PROCEDURES No Known procedures IMMUNIZATIONS No Known Immunizations"
--- OUTSIDE RECORDS SUMMARY | 2017-01-17 12:38 | XMS ---
Demographics + + + | Address | [address] | | | [address] | | | [place] [address] | + + + | Preferred Language | Unknown | + + + | Marital Status | Unknown | + + + | Mandaeism Affiliation | Unknown | + + + | Race | Unknown | + + + | Ethnic Group | Unknown | + + + Author + + + | Author | [facility] | + + + | Organization | [facility] | + + + | Address | 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 | | Active | 4743726 | | | ia | | | | | | +---------+ + + +--------+ + + | 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 | 086927154 | | | hypothyroi | | | | | | | | dism | | | | | | +---------+ + + +--------+ + + | Problem | Hypertensi | | I10 | | Active | 75503999 | | | on | | | | | | +---------+ + + +--------+ + + | 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 | 88463191 | | | hatemia | | | | | | +---------+ + + +--------+ + + | Problem | Hypertensi | I11.9 | | | Active | 05700269 | | | ve | | | [...] | N18.3 | | | Active | 094969631 | | | (chronic | | | [...] | | E20.8 | | Active | 70305229 | | | hypoparath | | | | | | | | yroidism | | | | | | +---------+ + + +--------+ + + | Problem | Gastroesop | K21.9 | | | Active | 102295372 | | | hageal | | | [...] | | R73.01 | | Active | 597492647 | | | fasting | | | | | | | | glucose | | | | | | +---------+ + + +--------+ + + ALLERGIES + + + + +--------+ | Substance | Reaction | Event Type | Date | Status | + + + + +--------+ | Trazodone | GI | Drug Allergy | 27 Jamshid, 2017 | Active | + + [...] + + + | Pending Test | Strep Gp A Rapid (IH) | + + + VITAL SIGNS + + + + | Height | 62 in | 2016-11-28 | + + + + | Weight | 108.9 lbs | 2016-11-28 | + + + + | BMI | 19.92 kg/m2 | 2016-11-28 | + + + + | Temperature | 98.0 degrees Fahrenheit | 2016-11-28 | + + + + | Heart Rate | 70 /min | 2016-11-28 | + + + + | Blood pressure systolic | 171 mm Hg | 2016-11-28 | + + + + | Blood pressure diastolic | 58 mm Hg | 2016-11-28 | + + + + MEDICATIONS + [...] Orally | 1 | 8h | 27 Jamshid, | 6 Aug, | 10 | Active | | carlos [...] + + + + + +--------+ RESULTS + +--------+------+ + | Name | Result | Date | Reference Range | + +--------+------+ + | Urinalysis w/ C + S | | | | | if Indicated | | | | + +--------+------+ + | COLLECTION TYPE | | | | + +--------+------+ + | COLOR | | | | + +--------+------+ + | CLARITY | | | | + +--------+------+ + | SPECIFIC GRAVITY, | | | | | URINE | | | | + +--------+------+ + | PH | | | | + +--------+------+ + | PROTEIN | | | | + +--------+------+ + | GLUCOSE | | | | + +--------+------+ + | KETONE | | | | + +--------+------+ + | BILIRUBIN | | | | + +--------+------+ + | BLOOD/HGB | | | | + +--------+------+ + | NITRITE | | | | + +--------+------+ + | UROBILINOGEN | | | | + +--------+------+ + | LEUK ESTERASE | | | | + +--------+------+ + | CASTS | | | | + +--------+------+ + | WBC'S | | | | + +--------+------+ + | RBC'S | | | | + +--------+------+ + | EPITHELIAL | | | | + +--------+------+ + | CRYSTALS | | | | + +--------+------+ + | BACTERIA | | | | + +--------+------+ + | REFLEX CULTURE | | | | + +--------+------+ + PROCEDURES + + + + + | Procedure | Date Ordered | Related Diagnosis | Body Site | + + + + + | STREP A ASSAY | November 28, 2016 | | | | W/OPTIC | | | | + + + + + | Office Visit, Est | November 28, 2016 | | | | Pt., Level 4 | | | | + + + + + IMMUNIZATIONS No Known Immunizations"
--- OUTSIDE RECORDS SUMMARY | 2017-01-17 12:38 | XMS ---
Demographics + + + | Address | [address] | | | [address] | | | [place] [address] | + + + | Preferred Language | Unknown | + + + | Marital Status | Unknown | + + + | Orthodoxy Affiliation | Unknown | + + + | Race | Unknown | + + + | Ethnic Group | Unknown | + + + Author + + + | Author | [facility] | + + + | Organization | [facility] | + + + | Address | [address] | | | [place] [address] | + + + | Phone | | + + + Care Team Providers + + + + | Care Bilingual Social Worker Name | Role | Phone | + + + + Unavailable | Unavailable | + + + + PROBLEMS +---------+ + + +--------+ + + | Type | Condition | ICD9-CM | [id number] | Onset | Condition | SNOMED | | | | Code | Code | Dates | Status | Code | +---------+ + + +--------+ + + | Problem | Hyperchole | | E78.0 | | Active | 51081688 | | | sterolemia | | | | | | +---------+ + + +--------+ + + | Problem | Hypocalcem | | E83.51 | | Active | 4547125 | | | ia | | | | | | +---------+ + + +--------+ + + | 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 | 934790851 | | | hypothyroi | | | | | | | | dism | | | | | | +---------+ + + +--------+ + + | Problem | Hypertensi | | I10 | | Active | 76436028 | | | on | | | | | | +---------+ + + +--------+ + + | 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 | 13725912 | | | hatemia | | | | | | +---------+ + + +--------+ + + | Problem | Hypertensi | I11.9 | | | Active | 63213473 | | | ve | | | [...] | N18.3 | | | Active | 112346169 | | | (chronic | | | [...] | | E20.8 | | Active | 81173596 | | | hypoparath | | | | | | | | yroidism | | | | | | +---------+ + + +--------+ + + | Problem | Gastroesop | K21.9 | | | Active | 385488472 | | | hageal | | | [...] | | R73.01 | | Active | 519201598 | | | fasting | | | | | | | | glucose | | | | | | +---------+ + + +--------+ + + ALLERGIES + + + + +--------+ | Substance | Reaction | Event Type | Date | Status | + + + + +--------+ | Trazodone | GI | Drug Allergy | 15 Aug, 2017 | Active | + + [...] 1 Week Reason:null | + + + VITAL SIGNS + + + + | Height | 62 in | 2016-12-17 | + + + + | Weight | 109.7 lbs | 2016-12-17 | + + + + | BMI | 20.06 kg/m2 | 2016-12-17 | + + + + | Heart Rate | 75 /min | 2016-12-17 | + + + + | Blood pressure systolic | 129 mm Hg | 2016-12-17 | + + + + | Blood pressure diastolic | 58 mm Hg | 2016-12-17 | + + + + MEDICATIONS + [...] + + + + + +--------+ | Gabapent | Orally | 2 tabs | 12h | | | | Active | | in 100 | bid | | | | | | | | mg | | | | | | | [...] Potassiu | orally | 1 tablet | 12h | | | | Active | | m | twice a | | | | | | [...] + | Office Visit, Est | Dec 17, 2016 | | | | Pt., Level 4 | | | | + + + + + IMMUNIZATIONS No Known Immunizations"
--- OUTSIDE RECORDS SUMMARY | 2017-01-17 12:38 | XMS ---
Demographics + + + | Address | [address] | | | [address] | | | [place] [address] | + + + | Preferred Language | Unknown | + + + | Marital Status | Unknown | + + + | Mormonism Affiliation | Unknown | + + + | Race | Unknown | + + + | Ethnic Group | Unknown | + + + Author + + + | Author | [facility] | + + + | Organization | [facility] | + + + | Address | [address] | | | [place] [address] | + + + | Phone | | + + + Care Team Providers + + + + | Care Drop Forger Name | Role | Phone | + + + + Unavailable | Unavailable | + + + + PROBLEMS +---------+ + + +--------+ + + | Type | Condition | ICD9-CM | [id number] | Onset | Condition | SNOMED | | | | Code | Code | Dates | Status | Code | +---------+ + + +--------+ + + | Problem | Hyperchole | | E78.0 | | Active | 31341516 | | | sterolemia | | | | | | +---------+ + + +--------+ + + | Problem | Hypocalcem | | E83.51 | | Active | 0447212 | | | ia | | | | | | +---------+ + + +--------+ + + | 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 | 624680254 | | | hypothyroi | | | | | | | | dism | | | | | | +---------+ + + +--------+ + + | Problem | Hypertensi | | I10 | | Active | 67025019 | | | on | | | | | | +---------+ + + +--------+ + + | 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 | 25842073 | | | hatemia | | | | | | +---------+ + + +--------+ + + | Problem | Hypertensi | I11.9 | | | Active | 88343610 | | | ve | | | [...] | N18.3 | | | Active | 085620759 | | | (chronic | | | [...] | | E20.8 | | Active | 50172334 | | | hypoparath | | | | | | | | yroidism | | | | | | +---------+ + + +--------+ + + | Problem | Gastroesop | K21.9 | | | Active | 034071886 | | | hageal | | | [...] | | R73.01 | | Active | 670431532 | | | fasting | | | | | | | | glucose | | | | | | +---------+ + + +--------+ + + ALLERGIES + + + + +--------+ | Substance | Reaction | Event Type | Date | Status | + + + + +--------+ | Trazodone | GI | Drug Allergy | Dec, | Active | + + + + +--------+ | Codeine | GI | Drug Allergy | Dec, | Active | + + + + +--------+ SOCIAL HISTORY No smoking Hx information available PLAN OF CARE + +---------+ | Activity | Details | + +---------+ +---+ | | +---+ + + + | Follow Up | prn Reason:null | + + + VITAL SIGNS + + + + | Height | 62 in | 2016-12-30 | + + + + | Weight | 109 lbs | 2016-12-30 | + + + + | BMI | 19.93 kg/m2 | 2016-12-30 | + + + + | Temperature | 98.0 degrees Fahrenheit | 2016-12-30 | + + + + | Heart Rate | 62 /min | 2016-12-30 | + + + + | Blood pressure systolic | 142 mm Hg | 2016-12-30 | + + + + | Blood pressure diastolic | 70 mm Hg | 2016-12-30 | + + + + MEDICATIONS + [...] Orally | 1 tablet | | 01 Winsotn, | | 10 days | Active | [...] + | Office Visit, Est | Dec 30, 2016 | | | | Pt., Level 3 | | | | + + + + + | [facility] MED/CURRENT | Dec 30, 2016 | | | | MED MERGE | | | | + + + + + | DOC MEDS VERIFIED | Dec 30, 2016 | | | | W/PT OR RE | | | | + + + + + IMMUNIZATIONS No Known Immunizations"
--- OUTSIDE RECORDS SUMMARY | 2017-01-17 12:38 | XMS ---
Demographics + + + | Address | [address] | | | [address] | | | [place] [address] | + + + | Preferred Language | Unknown | + + + | Marital Status | Unknown | + + + | Hinduism Affiliation | Unknown | + + + | Race | Unknown | + + + | Ethnic Group | Unknown | + + + Author + + + | Author | [facility] | + + + | Organization | [facility] | + + + | Address | 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.51 | | Active | 5508965 | | | ia | | | | | | +---------+ + + +--------+ + + | 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 | 879064160 | | | hypothyroi | | | | | | | | dism | | | | | | +---------+ + + +--------+ + + | Problem | Hypertensi | | I10 | | Active | 03580097 | | | on | | | | | | +---------+ + + +--------+ + + | 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 | 08672484 | | | hatemia | | | | | | +---------+ + + +--------+ + + | Problem | Hypertensi | I11.9 | | | Active | 25053775 | | | ve | | | [...] | N18.3 | | | Active | 151607334 | | | (chronic | | | [...] | | E20.8 | | Active | 30714044 | | | hypoparath | | | | | | | | yroidism | | | | | | +---------+ + + +--------+ + + | Problem | Gastroesop | K21.9 | | | Active | 997896174 | | | hageal | | | [...] | | R73.01 | | Active | 874615031 | | | fasting | | | | | | | | glucose | | | | | | +---------+ + + +--------+ + + ALLERGIES + + + + +--------+ | Substance | Reaction | Event Type | Date | Status | + + + + +--------+ | Trazodone | GI | Drug Allergy | 31 Aug, 2017 | Active | + + [...] + | Height | 62 in | 2017-01-02 | + + + + | Weight | 110.0 lbs | 2017-01-02 | + + + + | BMI | 20.12 kg/m2 | 2017-01-02 | + + + + | Heart Rate | 70 /min | 2017-01-02 | + + + + | Blood pressure systolic | 134 mm Hg | 2017-01-02 | + + + + | Blood pressure diastolic | 60 mm Hg | 2017-01-02 | + + + + MEDICATIONS + [...] | Orally | 1 tablet | | Oct, | | 10 days | Active | [...] + + | Office Visit, Est | Jan 02, 2017 | | | | Pt., Level 3 | | | | + + + + + IMMUNIZATIONS No Known Immunizations"
--- OUTSIDE RECORDS SUMMARY | 2017-01-17 12:38 | XMS ---
Demographics + + + | Address | [address] | | | [address] | | | [place] [address] | + + + | Preferred Language | Unknown | + + + | Marital Status | Unknown | + + + | Adventism Affiliation | Unknown | + + + | Race | Unknown | + + + | Ethnic Group | Unknown | + + + Author + + + | Author | [facility] | + + + | Organization | [facility] | + + + | Address | 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 | | Active | 3403205 | | | ia | | | | | | +---------+ + + +--------+ + + | 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 | 016167840 | | | hypothyroi | | | | | | | | dism | | | | | | +---------+ + + +--------+ + + | Problem | Hypertensi | | I10 | | Active | 22844455 | | | on | | | | | | +---------+ + + +--------+ + + | 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 | 70212676 | | | hatemia | | | | | | +---------+ + + +--------+ + + | Problem | Hypertensi | I11.9 | | | Active | 91629957 | | | ve | | | [...] | N18.3 | | | Active | 823954070 | | | (chronic | | | [...] | | E20.8 | | Active | 88391481 | | | hypoparath | | | | | | | | yroidism | | | | | | +---------+ + + +--------+ + + | Problem | Gastroesop | K21.9 | | | Active | 837995799 | | | hageal | | | [...] | | R73.01 | | Active | 126310061 | | | fasting | | | | | | | | glucose | | | | | | +---------+ + + +--------+ + + ALLERGIES + + + + +--------+ | Substance | Reaction | Event Type | Date | Status | + + + + +--------+ | Trazodone | GI | Drug Allergy | 20 Winston, 2017 | Active | + + [...] + | Height | 62 in | 2016-10-22 | + + + + | Weight | 103.4 lbs | 2016-10-22 | + + + + | BMI | 18.91 kg/m2 | 2016-10-22 | + + + + | Heart Rate | 63 /min | 2016-10-22 | + + + + | Blood pressure systolic | 136 mm Hg | 2016-10-22 | + + + + | Blood pressure diastolic | 58 mm Hg | 2016-10-22 | + + + + MEDICATIONS + [...] tablet | | 09 Winston, | | | Active | | one 0.25 | Once a | | | 2017 | | | | | MG | day qam [...] | MG | three | | | 2016 | | | | | | times [...] + | Office Visit, Est | October 22, 2016 | | | | Pt., Level 4 | | | | + + + + + IMMUNIZATIONS No Known Immunizations"
--- OUTSIDE RECORDS SUMMARY | 2017-01-17 12:38 | XMS ---
Demographics + + + | Address | [address] | | | [address] | | | [place] [address] | + + + | Preferred Language | Unknown | + + + | Marital Status | Unknown | + + + | Rastafari Affiliation | Unknown | + + + | Race | Unknown | + + + | Ethnic Group | Unknown | + + + Author + + + | Author | [facility] | + + + | Organization | [facility] | + + + | Address | 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.51 | | Active | 7216618 | | | ia | | | | | | +---------+ + + +--------+ + + | 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 | 856026494 | | | hypothyroi | | | | | | | | dism | | | | | | +---------+ + + +--------+ + + | Problem | Hypertensi | | I10 | | Active | 74799883 | | | on | | | | | | +---------+ + + +--------+ + + | 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 | 56505214 | | | hatemia | | | | | | +---------+ + + +--------+ + + | Problem | Hypertensi | I11.9 | | | Active | 39268058 | | | ve | | | [...] | N18.3 | | | Active | 688696580 | | | (chronic | | | [...] | | E20.8 | | Active | 82915177 | | | hypoparath | | | | | | | | yroidism | | | | | | +---------+ + + +--------+ + + | Problem | Gastroesop | K21.9 | | | Active | 978865725 | | | hageal | | | [...] | | R73.01 | | Active | 775570305 | | | fasting | | | | | | | | glucose | | | | | | +---------+ + + +--------+ + + ALLERGIES Unknown Allergies SOCIAL HISTORY No smoking Hx information available PLAN OF CARE VITAL SIGNS MEDICATIONS Unknown Medications RESULTS No Results PROCEDURES No Known procedures IMMUNIZATIONS No Known Immunizations"
--- OUTSIDE RECORDS SUMMARY | 2017-01-17 12:38 | XMS ---
Demographics + + + | Address | [address] | | | [address] | | | [place] [address] | + + + | Preferred Language | Unknown | + + + | Marital Status | Unknown | + + + | Roman Catholic Affiliation | Unknown | + + + | Race | Unknown | + + + | Ethnic Group | Unknown | + + + Author + + + | Author | [facility] | + + + | Organization | [facility] | + + + | Address | 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.51 | | Active | 1831190 | | | ia | | | | | | +---------+ + + +--------+ + + | 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 | 069811933 | | | hypothyroi | | | | | | | | dism | | | | | | +---------+ + + +--------+ + + | Problem | Hypertensi | | I10 | | Active | 69473268 | | | on | | | | | | +---------+ + + +--------+ + + | 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 | 83320073 | | | hatemia | | | | | | +---------+ + + +--------+ + + | Problem | Hypertensi | I11.9 | | | Active | 78062889 | | | ve | | | [...] | N18.3 | | | Active | 882266796 | | | (chronic | | | [...] | | E20.8 | | Active | 88721047 | | | hypoparath | | | | | | | | yroidism | | | | | | +---------+ + + +--------+ + + | Problem | Gastroesop | K21.9 | | | Active | 549780781 | | | hageal | | | [...] | | R73.01 | | Active | 377612175 | | | fasting | | | | | | | | glucose | | | | | | +---------+ + + +--------+ + + ALLERGIES Unknown Allergies SOCIAL HISTORY No smoking Hx information available PLAN OF CARE VITAL SIGNS MEDICATIONS Unknown Medications RESULTS No Results PROCEDURES No Known procedures IMMUNIZATIONS No Known Immunizations"
--- OUTSIDE RECORDS SUMMARY | 2017-01-17 12:38 | XMS ---
Demographics + + + | Address | [address] | | | [address] | | | [place] [address] | + + + | Preferred Language | Unknown | + + + | Marital Status | Unknown | + + + | Muslim Affiliation | Unknown | + + + | Race | Unknown | + + + | Ethnic Group | Unknown | + + + Author + + + | Author | [facility] | + + + | Organization | [facility] | + + + | Address | [address] | | | [place] [address] | + + + | Phone | | + + + Care Team Providers + + + + | Care Registered Representative Name | Role | Phone | + + + + Unavailable | Unavailable | + + + + PROBLEMS +---------+ + + +--------+ + + | Type | Condition | ICD9-CM | [id number] | Onset | Condition | SNOMED | | | | Code | Code | Dates | Status | Code | +---------+ + + +--------+ + + | Problem | Hyperchole | | E78.0 | | Active | 23120509 | | | sterolemia | | | | | | +---------+ + + +--------+ + + | Problem | Hypocalcem | | E83.51 | | Active | 8568477 | | | ia | | | | | | +---------+ + + +--------+ + + | 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 | 522914556 | | | hypothyroi | | | | | | | | dism | | | | | | +---------+ + + +--------+ + + | Problem | Hypertensi | | I10 | | Active | 36450628 | | | on | | | | | | +---------+ + + +--------+ + + | 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 | 52769058 | | | hatemia | | | | | | +---------+ + + +--------+ + + | Problem | Hypertensi | I11.9 | | | Active | 41218044 | | | ve | | | [...] | N18.3 | | | Active | 320035986 | | | (chronic | | | [...] | | E20.8 | | Active | 24544827 | | | hypoparath | | | | | | | | yroidism | | | | | | +---------+ + + +--------+ + + | Problem | Gastroesop | K21.9 | | | Active | 222440946 | | | hageal | | | [...] | | R73.01 | | Active | 802657934 | | | fasting | | | | | | | | glucose | | | | | | +---------+ + + +--------+ + + ALLERGIES Unknown Allergies SOCIAL HISTORY No smoking Hx information available PLAN OF CARE VITAL SIGNS MEDICATIONS Unknown Medications RESULTS No Results PROCEDURES No Known procedures IMMUNIZATIONS No Known Immunizations"
--- OUTSIDE RECORDS SUMMARY | 2017-01-17 12:38 | XMS ---
Demographics + + + | Address | [address] | | | [address] | | | [place] [address] | + + + | Preferred Language | Unknown | + + + | Marital Status | Unknown | + + + | Sikh Affiliation | Unknown | + + + | Race | Unknown | + + + | Ethnic Group | Unknown | + + + Author + + + | Author | [facility] | + + + | Organization | [facility] | + + + | Address | [address] | | | [place] [address] | + + + | Phone | | + + + Care Team Providers + + + + | Care Candy Starch Mold Printer Name | Role | Phone | + + + + Unavailable | Unavailable | + + + + PROBLEMS +---------+ + + +--------+ + + | Type | Condition | ICD9-CM | [id number] | Onset | Condition | SNOMED | | | | Code | Code | Dates | Status | Code | +---------+ + + +--------+ + + | Problem | Hyperchole | | E78.0 | | Active | 92822280 | | | sterolemia | | | | | | +---------+ + + +--------+ + + | Problem | Hypocalcem | | E83.51 | | Active | 6797645 | | | ia | | | | | | +---------+ + + +--------+ + + | 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 | 376434263 | | | hypothyroi | | | | | | | | dism | | | | | | +---------+ + + +--------+ + + | Problem | Hypertensi | | I10 | | Active | 79045487 | | | on | | | | | | +---------+ + + +--------+ + + | 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 | 81732020 | | | hatemia | | | | | | +---------+ + + +--------+ + + | Problem | Hypertensi | I11.9 | | | Active | 59504730 | | | ve | | | [...] | N18.3 | | | Active | 447596908 | | | (chronic | | | [...] | | E20.8 | | Active | 25124273 | | | hypoparath | | | | | | | | yroidism | | | | | | +---------+ + + +--------+ + + | Problem | Gastroesop | K21.9 | | | Active | 244185953 | | | hageal | | | [...] | | R73.01 | | Active | 599326702 | | | fasting | | | | | | | | glucose | | | | | | +---------+ + + +--------+ + + ALLERGIES Unknown Allergies SOCIAL HISTORY No smoking Hx information available PLAN OF CARE VITAL SIGNS MEDICATIONS Unknown Medications RESULTS No Results PROCEDURES No Known procedures IMMUNIZATIONS No Known Immunizations"
--- OUTSIDE RECORDS SUMMARY | 2017-01-17 12:38 | XMS ---
Demographics + + + | Address | [address] | | | [address] | | | [place] [address] | + + + | Preferred Language | Unknown | + + + | Marital Status | Unknown | + + + | Zoroastrianism Affiliation | Unknown | + + + | Race | Unknown | + + + | Ethnic Group | Unknown | + + + Author + + + | Author | [facility] | + + + | Organization | [facility] | + + + | Address | [address] | | | [place] [address] | + + + | Phone | | + + + Care Team Providers + + + + | Care Clother In Name | Role | Phone | + + + + Unavailable | Unavailable | + + + + PROBLEMS +---------+ + + +--------+ + + | Type | Condition | ICD9-CM | [id number] | Onset | Condition | SNOMED | | | | Code | Code | Dates | Status | Code | +---------+ + + +--------+ + + | Problem | Hyperchole | | E78.0 | | Active | [id number] | | | sterolemia | | | | | | +---------+ + + +--------+ + + | Problem | Hypocalcem | | E83.51 | | Active | 5118245 | | | ia | | | | | | +---------+ + + +--------+ + + | 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 | 935276555 | | | hypothyroi | | | | | | | | dism | | | | | | +---------+ + + +--------+ + + | Problem | Hypertensi | | I10 | | Active | 88811458 | | | on | | | | | | +---------+ + + +--------+ + + | 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 | 58951257 | | | hatemia | | | | | | +---------+ + + +--------+ + + | Problem | Hypertensi | I11.9 | | | Active | 60955602 | | | ve | | | [...] | N18.3 | | | Active | 084180650 | | | (chronic | | | [...] | | E20.8 | | Active | 55572011 | | | hypoparath | | | | | | | | yroidism | | | | | | +---------+ + + +--------+ + + | Problem | Gastroesop | K21.9 | | | Active | 057811336 | | | hageal | | | [...] | | R73.01 | | Active | 573921156 | | | fasting | | | [...] + +--------+ + +--------+ | Potassiu | orally | [...]
--- OUTSIDE RECORDS SUMMARY | 2017-01-17 12:38 | XMS ---
Demographics + + + | Address | [address] | | | [address] | | | [place] [address] | + + + | Preferred Language [...] + + + | Organization | [facility] | + + + | Address | [address] | | | [place] [address] | + + + | Phone | | + + + Care Team Providers + + + + | Care Backend Java Developer Name | Role | Phone | + + + + Unavailable | Unavailable | + + + + PROBLEMS +---------+ + + +--------+ + + | Type | Condition | ICD9-CM | [id number] | Onset | Condition | SNOMED | | | | Code | Code | Dates | Status | Code | +---------+ + + +--------+ + + | Problem | Hyperchole | | E78.0 | | Active | 55628091 | | | sterolemia | | | | | | +---------+ + + +--------+ + + | Problem | Hypocalcem | | E83.51 | | Active | 2545980 | | | ia | | | | | | +---------+ + + +--------+ + + | 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 | 777741443 | | | hypothyroi | | | | | | | | dism | | | | | | +---------+ + + +--------+ + + | Problem | Hypertensi | | I10 | | Active | 33448935 | | | on | | | | | | +---------+ + + +--------+ + + | 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 | 62930800 | | | hatemia | | | | | | +---------+ + + +--------+ + + | Problem | Hypertensi | I11.9 | | | Active | 09292683 | | | ve | | | [...] | N18.3 | | | Active | 540024465 | | | (chronic | | | [...] | | E20.8 | | Active | 56158895 | | | hypoparath | | | | | | | | yroidism | | | | | | +---------+ + + +--------+ + + | Problem | Gastroesop | K21.9 | | | Active | 254588576 | | | hageal | | | [...] | | R73.01 | | Active | 494272827 | | | fasting | | | | | | | | glucose | | | | | | +---------+ + + +--------+ + + ALLERGIES Unknown Allergies SOCIAL HISTORY No smoking Hx information available PLAN OF CARE VITAL SIGNS MEDICATIONS Unknown Medications RESULTS No Results PROCEDURES No Known procedures IMMUNIZATIONS No Known Immunizations"
--- OUTSIDE RECORDS SUMMARY | 2017-01-17 12:38 | XMS ---
Demographics + + + | Address | [address] | | | [address] | | | [place] [address] | + + + | Preferred Language | Unknown | + + + | Marital Status | Unknown | + + + | Episcopal Affiliation | Unknown | + + + | Race | Unknown | + + + | Ethnic Group | Unknown | + + + Author + + + | Author | [facility] | + + + | Organization | [facility] | + + + | Address | [address] | | | [place] [address] | + + + | Phone | | + + + Care Team Providers + + + + | Care Vending Technician Name | Role | Phone | + + + + Unavailable | Unavailable | + + + + PROBLEMS +---------+ + + +--------+ + + | Type | Condition | ICD9-CM | [id number] | Onset | Condition | SNOMED | | | | Code | Code | Dates | Status | Code | +---------+ + + +--------+ + + | Problem | Hyperchole | | E78.0 | | Active | [id number] | | | sterolemia | | | | | | +---------+ + + +--------+ + + | Problem | Hypocalcem | | E83.51 | | Active | 8689435 | | | ia | | | | | | +---------+ + + +--------+ + + | 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 | 091792955 | | | hypothyroi | | | | | | | | dism | | | | | | +---------+ + + +--------+ + + | Problem | Hypertensi | | I10 | | Active | 54634450 | | | on | | | | | | +---------+ + + +--------+ + + | 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 | 90351404 | | | hatemia | | | | | | +---------+ + + +--------+ + + | Problem | Hypertensi | I11.9 | | | Active | 17425747 | | | ve | | | [...] | N18.3 | | | Active | 214263989 | | | (chronic | | | [...] | | E20.8 | | Active | 95980477 | | | hypoparath | | | | | | | | yroidism | | | | | | +---------+ + + +--------+ + + | Problem | Gastroesop | K21.9 | | | Active | 889998839 | | | hageal | | | [...] | | R73.01 | | Active | 834426937 | | | fasting | | | | | | | | glucose | | | | | | +---------+ + + +--------+ + + ALLERGIES + + + + +--------+ | Substance | Reaction | Event Type | Date | Status | + + + + +--------+ | Trazodone | GI | Drug Allergy | 06 Jamshid, 2017 | Active | + + [...] + | Height | 62 in | 2016-11-07 | + + + + | Weight | 109.3 lbs | 2016-11-07 | + + + + | BMI | 19.99 kg/m2 | 2016-11-07 | + + + + | Heart Rate | 64 /min | 2016-11-07 | + + + + | Blood pressure systolic | 122 mm Hg | 2016-11-07 | + + + + | Blood pressure diastolic | 49 mm Hg | 2016-11-07 | + + + + MEDICATIONS + [...] Calcium | Orally | 1 tablet | 12h | 06 Jamshid, | | 3 days | Active | | 500 MG | Twice a | | | 2017 | | | | | | day [...] orally | 1 tablet | 24h | 06 Nov, | 9 Nov, | 3 days | Active | | m | [...] + + + + + +--------+ | Kemar 8 | Orally | 1 tablet | [...] + | Office Visit, Est | November 07, 2016 | | | | Pt., Level 4 | | | | + + + + + IMMUNIZATIONS No Known Immunizations"
--- OUTSIDE RECORDS SUMMARY | 2017-01-17 12:38 | XMS ---
Demographics + + + | Address | [address] | | | [address] | | | [place] [address] | + + + | Preferred Language [...] + + + | Organization | [facility] | + + + | Address | [address] | | | [place] [address] | + + + | Phone | | + + + Care Team Providers + + + + | Care Transfer And Pumphouse Operator Chief Name | Role | Phone | + + + + Unavailable | Unavailable | + + + + PROBLEMS +---------+ + + +--------+ + + | Type | Condition | ICD9-CM | [id number] | Onset | Condition | SNOMED | | | | Code | Code | Dates | Status | Code | +---------+ + + +--------+ + + | Problem | Hyperchole | | E78.0 | | Active | 79960624 | | | sterolemia | | | | | | +---------+ + + +--------+ + + | Problem | Hypocalcem | | E83.51 | | Active | 1074209 | | | ia | | | | | | +---------+ + + +--------+ + + | 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 | 921783183 | | | hypothyroi | | | | | | | | dism | | | | | | +---------+ + + +--------+ + + | Problem | Hypertensi | | I10 | | Active | 45845678 | | | on | | | | | | +---------+ + + +--------+ + + | 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 | 88088316 | | | hatemia | | | | | | +---------+ + + +--------+ + + | Problem | Hypertensi | I11.9 | | | Active | 49467921 | | | ve | | | [...] | N18.3 | | | Active | 476913221 | | | (chronic | | | [...] | | E20.8 | | Active | 93199268 | | | hypoparath | | | | | | | | yroidism | | | | | | +---------+ + + +--------+ + + | Problem | Gastroesop | K21.9 | | | Active | 389679927 | | | hageal | | | [...] | | R73.01 | | Active | 324441310 | | | fasting | | | | | | | | glucose | | | | | | +---------+ + + +--------+ + + ALLERGIES Unknown Allergies SOCIAL HISTORY No smoking Hx information available PLAN OF CARE VITAL SIGNS MEDICATIONS Unknown Medications RESULTS No Results PROCEDURES No Known procedures IMMUNIZATIONS No Known Immunizations"
--- OUTSIDE RECORDS SUMMARY | 2017-01-17 12:38 | XMS ---
Demographics + + + | Address | [address] | | | [address] | | | [place] [address] | + + + | Preferred Language [...] | + + + | Organization | [facility] | + + + | Address | [address] | | | [place] [address] | + + + | Phone | | + + + Care Team Providers + + + + | Care Mammalogist Name | Role | Phone | + + + + Unavailable | Unavailable | + + + + PROBLEMS +---------+ + + +--------+ + + | Type | Condition | ICD9-CM | [id number] | Onset | Condition | SNOMED | | | | Code | Code | Dates | Status | Code | +---------+ + + +--------+ + + | Problem | Hyperchole | | E78.0 | | Active | 12434409 | | | sterolemia | | | | | | +---------+ + + +--------+ + + | Problem | Hypocalcem | | E83.51 | | Active | 6435987 | | | ia | | | | | | +---------+ + + +--------+ + + | 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 | 365325223 | | | hypothyroi | | | | | | | | dism | | | | | | +---------+ + + +--------+ + + | Problem | Hypertensi | | I10 | | Active | 10361255 | | | on | | | | | | +---------+ + + +--------+ + + | 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 | 02583044 | | | hatemia | | | | | | +---------+ + + +--------+ + + | Problem | Hypertensi | I11.9 | | | Active | 75662417 | | | ve | | | [...] | N18.3 | | | Active | 534566627 | | | (chronic | | | [...] | | E20.8 | | Active | 37571543 | | | hypoparath | | | | | | | | yroidism | | | | | | +---------+ + + +--------+ + + | Problem | Gastroesop | K21.9 | | | Active | 327336558 | | | hageal | | | [...] | | R73.01 | | Active | 576347676 | | | fasting | | | | | | | | glucose | | | | | | +---------+ + + +--------+ + + ALLERGIES + + + + +--------+ | Substance | Reaction | Event Type | Date | Status | + + + + +--------+ | Trazodone | GI | Drug Allergy | 24 Aug, 2017 | Active | + + [...] + | Height | 62 in | 2016-12-26 | + + + + | Weight | 109.7 lbs | 2016-12-26 | + + + + | BMI | 20.06 kg/m2 | 2016-12-26 | + + + + | Heart Rate | 74 /min | 2016-12-26 | + + + + | Blood pressure systolic | 159 mm Hg | 2016-12-26 | + + + + | Blood pressure diastolic | 58 mm Hg | 2016-12-26 | + + + + MEDICATIONS + [...] + | Office Visit, Est | Dec 26, 2016 | | | | Pt., Level 3 | | | | + + + + + IMMUNIZATIONS No Known Immunizations"
--- NOTE | 2017-01-18 | EKG ---
[facility] [address] [place] [address] Signed AV dual-paced rhythm Abnormal ECG When compared with ECG of 27-SEP-2016 19:27, Vent. rate has decreased BY 23 BPM Confirmed by DONIS HERNANDEZ MD ([id number]) on 01/18/2017 12:00:18 AM Electronically Signed By: DONIS HRENANDEZ MD 01/18/17 0000 PATIENT NAME: JORDAN VERGARA YASMEEN Electrocardiogram DATE OF : 32 PHYSICIAN: DONIS HERNANDEZ MD REPORT #: [id number] REPORT IS CONFIDENTIAL AND NOT TO BE RELEASED WITHOUT AUTHORIZATION
== END 2017-01-17 16:23 ==
LOC: ED 11:58
DX: R07.9 Chest pain, unspecified (principal); R79.89 Other specified abnormal findings of blood chemistry; Z53.8 Procedure and treatment not carried out for other reasons; E78.00 Pure hypercholesterolemia, unspecified; K21.9 Gastro-esophageal reflux disease without esophagitis; Z95.0 Presence of cardiac pacemaker; I12.9 Hypertensive chronic kidney disease with stage 1 through stage 4 chronic kidney disease, or unspecified chronic kidney disease; N18.9 Chronic kidney disease, unspecified; Z85.3 Personal history of malignant neoplasm of breast; Z90.710 Acquired absence of both cervix and uterus; Z88.5 Allergy status to narcotic agent; Z88.8 Allergy status to other drugs, medicaments and biological substances; Z79.899 Other long term (current) drug therapy
CPT/HCPCS: 71010; 80053; 84484; 85025; 93005; 93010; 99285

== ENCOUNTER 2017-02-01 09:19 | Inpatient (IN) | payer MEDICARE, OTHER ==
[~2017-02-01] VITALS: Ht 152.4 cm; Wt 50.0 kg
--- OUTSIDE RECORDS SUMMARY | ~2017-02-01 | XMS ---
Demographics + + + | Address | [address] | | | [address] | | | [place] [address] | + + + | Preferred Language | Unknown | + + + | Marital Status | Unknown | + + + | Sabianism Affiliation | Unknown | + + + [address] | | | [place] [address] | + + + | Phone | | + + + Care Team Providers + + + + | Care Blending Line Attendant Name | Role | Phone | + + + + Unavailable | Unavailable | + + + + PROBLEMS +---------+ + + +--------+ + + | Type | Condition | ICD9-CM | [id number] | Onset | Condition | SNOMED | | | | Code | Code | Dates | Status | Code | +---------+ + + +--------+ + + | Problem | Hyperchole | | E78.0 | | Active | 29006193 | | | sterolemia | | | | | | +---------+ + + +--------+ + + | Problem | Hypocalcem | | E83.51 | | Active | 2696030 | | | ia | | | | | | +---------+ + + +--------+ + + | 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 | 035318638 | | | hypothyroi | | | | | | | | dism | | | | | | +---------+ + + +--------+ + + | Problem | Hypertensi | | I10 | | Active | 70600295 | | | on | | | | | | +---------+ + + +--------+ + + | 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 | 86927399 | | | hatemia | | | | | | +---------+ + + +--------+ + + | Problem | Hypertensi | I11.9 | | | Active | 23171114 | | | ve | | | [...] | N18.3 | | | Active | 482488389 | | | (chronic | | | [...] | | E20.8 | | Active | 83826334 | | | hypoparath | | | | | | | | yroidism | | | | | | +---------+ + + +--------+ + + | Problem | Gastroesop | K21.9 | | | Active | 165423179 | | | hageal | | | [...] | | R73.01 | | Active | 191241127 | | | fasting | | | | | | | | glucose | | | | | | +---------+ + + +--------+ + + ALLERGIES No Information SOCIAL HISTORY Never Assessed PLAN OF CARE VITAL SIGNS MEDICATIONS Unknown Medications RESULTS No Results PROCEDURES No Known procedures IMMUNIZATIONS No Known Immunizations MEDICAL (GENERAL) HISTORY + + + + | Type | Description | Date | + + + + | Medical History | Hypertension | | + + + + | Medical History | Hypothyroid | | + + + + | Medical History | Asthma | | + + + + | Medical History | GERD | | + + + + | Medical History | Impaired fasting glucose | | + + + + | Medical History | Hypercholestrol | | + + + + | Medical History | 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 | | | | 11/2011 calcitriol started. 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 | | | | 13% risk of major | | | | osteoporotic fx, 3% risk of | | | | hip fx. 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 | | + + + + | Surgical History | Hysterectomy due to | 1996 | | | bleeding | | + + + + | Surgical History | Endocrinology consult | 11/27/11 | | | Patience re: hypocalcemia, pt | | | | started on Calcitriol | | | | 0.25ug bid. | | + + + + | Surgical History | Endocrinology f/u Dr Morin, | 12/12/11 | | | re: hypoparathyroid, | | | | hypocalcemia, continue | | | | calcitriol .25ug bid and | | | | citracal tid. | | + + + + | Surgical History | DEXA femoral T-score -1.3 | 12/12/11 | + + + + | Surgical History | eye exam Dr Edward | 2010 | + + + + | Surgical History | stress test; Adenosine | 09/26/04 | | | Cardiolite, NML study LVEF | | | | 73%, Dr Villalobos | | + + + + | Surgical History | 2D Echo - mild IHSS, no sub | 09/15/2009 | | | valvular gradient, aortic | | | | valve thickening with | | | | 15mmHg gradient, LVEF | | | | 50-55% mild MR, mild TR | | + + + + | Hospitalization History | [facility] dx: hypomagnesemia, | 03/17-03/18/11 | | | hypokalemia, hypocalcemia | | + + + + | Hospitalization History | [facility] ER re: unable to void. | 04/04/11 | + + + + | Hospitalization History | [facility] ER re: fall | 08/05/11 | + + + + | Hospitalization History | [facility] re: dizziness | 12/27/11 | + + + + | Hospitalization History | [facility] re: Fall | 01/30/12 | + + + + | Hospitalization History | [facility] ER re: confused, UTI | 10/12/12 | + + + + | Hospitalization History | [facility] ER re: r foot pain | 09/27/13 | + + + + | Hospitalization History | [facility] re: shoulder pain | 01/27/14 | + + + + | Hospitalization History | [facility] re: lightheaded | 09/26/14 | + + + + | Hospitalization History | [facility] re: fall | 11/02/15 | + + + + | Hospitalization History | [facility] ER | 12/01/15 | + + + + | Hospitalization History | [facility] Hospitalisation for | 12/20-12/23/15 | | | Hypercalcemia, | | | | Encephalopathy | | + + + + | Hospitalization History | [facility] ER re: confusion | 12/30/15 | + + + + | Hospitalization History | [facility] re: Hypercalcemia and | 01/07-01/11/16 | | | mental status change. | | + + + + | Hospitalization History | [facility] re: hypercalcemia, | 02/06-02/10/16 | | | mental status change | | + + + + | Hospitalization History | [facility] re: L knee pain | 02/25/16 | + + + + | Hospitalization History | [facility] ER | 03/17/16 | + + + + | Hospitalization History | [facility] ER re: increased | 09/16/16 | | | somnolence in day time due | | | | to increase in seroquel | | | | dose. | | + + + + | Hospitalization History | [facility] re: ARF | 09/27-09/29/16 | + + + + | Hospitalization History | [facility] re: cystitis | 10/07-10/09/16 | + + + +"
--- OUTSIDE RECORDS SUMMARY | ~2017-02-01 | XMS ---
Demographics + + + | Address | [address] | | | [address] | | | [place] [address] | + + + | Preferred Language | Unknown | + + + | Marital Status | Unknown | + + + | Yazidi Affiliation | Unknown | + + + | Race | Unknown | + + + | Ethnic Group | Unknown | + + + Author + + + | Author | [facility] | + + + | Organization | [facility] | + + + | Address | [address] | | | [place] [address] | + + + | Phone | | + + + Care Team Providers + + + + | Care Sandstone Inspector Repairer Name | Role | Phone | + + + + Unavailable | Unavailable | + + + + PROBLEMS +---------+ + + +--------+ + + | Type | Condition | ICD9-CM | [id number] | Onset | Condition | SNOMED | | | | Code | Code | Dates | Status | Code | +---------+ + + +--------+ + + | Problem | Hyperchole | | E78.0 | | Active | 64773949 | | | sterolemia | | | | | | +---------+ + + +--------+ + + | Problem | Hypocalcem | | E83.51 | | Active | 8462887 | | | ia | | | | | | +---------+ + + +--------+ + + | 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 | 431739280 | | | hypothyroi | | | | | | | | dism | | | | | | +---------+ + + +--------+ + + | Problem | Hypertensi | | I10 | | Active | 16070388 | | | on | | | | | | +---------+ + + +--------+ + + | 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 | 35063032 | | | hatemia | | | | | | +---------+ + + +--------+ + + | Problem | Hypertensi | I11.9 | | | Active | 34481669 | | | ve | | | [...] | N18.3 | | | Active | 139228025 | | | (chronic | | | [...] | | E20.8 | | Active | 28269115 | | | hypoparath | | | | | | | | yroidism | | | | | | +---------+ + + +--------+ + + | Problem | Gastroesop | K21.9 | | | Active | 889670076 | | | hageal | | | [...] | | R73.01 | | Active | 599851804 | | | fasting | | | | | | | | glucose | | | | | | +---------+ + + +--------+ + + ALLERGIES + + + + +--------+ | Substance | Reaction | Event Type | Date | Status | + + + + +--------+ | Trazodone | GI | Drug Allergy | 12 Sep, 2017 | Active | + + + + +--------+ | Codeine | GI | Drug Allergy | Jan, | Active | + + + + [...] + | Height | 62 in | 2017-01-14 | + + + + | Weight | 110.8 lbs | 2017-01-14 | + + + + | BMI | 20.26 kg/m2 | 2017-01-14 | + + + + | Heart Rate | 71 /min | 2017-01-14 | + + + + | Blood pressure systolic | 150 mm Hg | 2017-01-14 | + + + + | Blood pressure diastolic | 63 mm Hg | 2017-01-14 | + + + + MEDICATIONS + [...] Orally | 1 tablet | | 01 Winstno, | | 10 days | Active | [...] + + + + + +--------+ | Hi-Theo - | | | | | | | Active | + + + + + + + +--------+ | Seroquel | Orally | 1 tablet | 24h | | | | Active | | 50 MG | Once a | | | | [...] + + + + + +--------+ | Ferrous | Orally | | 12h | | | | Active | | Gluconat | bid | | | | | | | | e 324 | | | | | | | | | (37.5 | | | | | | | | | Fe) MG | | | | | | [...] + | Office Visit, Est | Jan 14, 2017 | | | | Pt., Level 4 | | | | + + + + + IMMUNIZATIONS No Known Immunizations"
--- OUTSIDE RECORDS SUMMARY | ~2017-02-01 | XMS ---
Demographics + + + | Address | [address] | | | [address] | | | [place] [address] | + + + | Preferred Language | Unknown | + + + | Marital Status | Unknown | + + + | Scientology Affiliation | Unknown | + + + | Race | Unknown | + + + | Ethnic Group | Unknown | + + + Author + + + | Author | [facility] | + + + | Organization | [facility] | + + + | Address | 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 | | Active | 8518877 | | | ia | | | | | | +---------+ + + +--------+ + + | 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 | 552559545 | | | hypothyroi | | | | | | | | dism | | | | | | +---------+ + + +--------+ + + | Problem | Hypertensi | | I10 | | Active | 25467087 | | | on | | | | | | +---------+ + + +--------+ + + | 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 | 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 | | | hatemia | | | | | | +---------+ + + +--------+ + + | Problem | Hypertensi | I11.9 | | | Active | 73118268 | | | ve | | | [...] | N18.3 | | | Active | 661899855 | | | (chronic | | | [...] | | 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
--- OUTSIDE RECORDS SUMMARY | ~2017-02-01 | XMS ---
Demographics + + + | Address | [address] | | | [address] | | | [place] [address] | + + + | Preferred Language | Unknown | + + + | Marital Status | Unknown | + + + | Jehovah'S Witness Affiliation | Unknown | + + + | Race | Unknown | + + + | Ethnic Group | Unknown | + + + Author + + + | Author | [facility] | + + + | Organization | [facility] | + + + | Address | 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 | | Active | 6934442 | | | ia | | | | | | +---------+ + + +--------+ + + | 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 | 476325004 | | | hypothyroi | | | | | | | | dism | | | | | | +---------+ + + +--------+ + + | Problem | Hypertensi | | I10 | | Active | 93452823 | | | on | | | | | | +---------+ + + +--------+ + + | 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 | 58644372 | | | hatemia | | | | | | +---------+ + + +--------+ + + | Problem | Hypertensi | I11.9 | | | Active | 59385679 | | | ve | | | [...] | N18.3 | | | Active | 891717914 | | | (chronic | | | [...] | | E20.8 | | Active | 82679618 | | | hypoparath | | | | | | | | yroidism | | | | | | +---------+ + + +--------+ + + | Problem | Gastroesop | K21.9 | | | Active | 288721506 | | | hageal | | | [...] | | R73.01 | | Active | 970560976 | | | fasting | | | | | | | | glucose | | | | | | +---------+ + + +--------+ + + ALLERGIES + + + + +--------+ | Substance | Reaction | Event Type | Date | Status | + + + + +--------+ | Trazodone | GI | Drug Allergy | 26 Sep, 2017 | Active | + + + + +--------+ | Codeine | GI | Drug Allergy | Jan, | Active | + + + + +--------+ SOCIAL HISTORY Never Assessed PLAN OF CARE + +---------+ | Activity | Details | + +---------+ +---+ | | +---+ + + + | Follow Up | 2 Weeks Reason:null | + + + VITAL SIGNS + + + + | Height | 62 in | 2017-01-28 | + + + + | Weight | 110.8 lbs | 2017-01-28 | + + + + | BMI | 20.26 kg/m2 | 2017-01-28 | + + + + | Heart Rate | 66 /min | 2017-01-28 | + + + + | Blood pressure systolic | 121 mm Hg | 2017-01-28 | + + + + | Blood pressure diastolic | 53 mm Hg | 2017-01-28 | + + + + MEDICATIONS + [...] AVB - [employer] | | | | [id number], SN:[id number] | | + + + + | [...] | questionnaire provided | | | | 08/10/12 | | + + + + | Medical History | POLST filled out pt is DNR | | | | 12/21/13 | | + + + + | Surgical History | Pacemaker/ICD original | | | | implant 06/09/96, replaced | | | | 06/17/03, [employer] [id number], | | | | SN:[id number] | | + + + + | [...] + | Surgical History | Endocrinology consult Dr | 11/27/11 | | | Patience re: [...]
--- OUTSIDE RECORDS SUMMARY | ~2017-02-01 | XMS ---
Demographics + + + | Address | [address] | | | [address] | | | [place] [address] | + + + | Preferred Language [...] + + + | Organization | [facility] | + + + | Address | 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 | | Active | 3837207 | | | ia | | | | | | +---------+ + + +--------+ + + | 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 | 720663677 | | | hypothyroi | | | | | | | | dism | | | | | | +---------+ + + +--------+ + + | Problem | Hypertensi | | I10 | | Active | 13840784 | | | on | | | | | | +---------+ + + +--------+ + + | 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 | 77054789 | | | hatemia | | | | | | +---------+ + + +--------+ + + | Problem | Hypertensi | I11.9 | | | Active | 99427371 | | | ve | | | [...] | N18.3 | | | Active | 836713535 | | | (chronic | | | [...] | | E20.8 | | Active | 73542421 | | | hypoparath | | | | | | | | yroidism | | | | | | +---------+ + + +--------+ + + | Problem | Gastroesop | K21.9 | | | Active | 489903510 | | | hageal | | | [...] | | R73.01 | | Active | 672129418 | | | fasting | | | [...] AVB - [employer] | | | | [id number], SN:[id number] | | + + + + | [...] 06/09/96, replaced | | | | 06/17/03, [employer] [id number], | | | | SN:[id number] | | + + + + | [...]
--- NOTE | 2017-02-01 14:00 | NUR ---
PT RECEIVED FROM ED. DAUGHTER AT BEDSIDE. ADMISSION ASSESSMENT COMPLETED. PT CONFUSED, ORIENTED TO SELF ONLY. LUNG SOUNDS CLEAR, ON ROOM AIR. BOWEL TONES ACTIVE. NO EDEMA NOTED. IV TO RIGHT AC SALINE LOCKED. BED ALARM ON.
--- NOTE | 2017-02-01 16:35 | NUR ---
PT ASSISTED TO BSC WITH NURSE AIDE, ASSISTED BACK TO BED. PT CONTINUES TO BE CONFUSED, IMPULSIVE. BED ALARM ON. IV FLUIDS INFUSING AT 100 ML/HR.
--- NOTE | 2017-02-01 17:59 | NUR ---
PT EATING DINNER. FAMILY AT BEDSIDE.
--- NOTE | 2017-02-01 18:15 | NUR ---
PT ADMITTED FOR DINA. PT CONFUSED, ORIENTED TO SELF. PT ON ROOM AIR, LUNG SOUNDS CLEAR. POOR APPETITE, CARDIAC DIET. 2PA TO BSC. IV FLUIDS INFUSING AT 100 ML/HR. URINE OUTPUT QS. PT REQUIRES CLOSE OBSERVATION, VERY IMPULSIVE, BED ALARM AND FREQUENT REORIENTATION.
--- NOTE | 2017-02-01 18:34 | NUR ---
PT USED BEDSIDE COMMODE AND IS NOW BACK IN BED WITH CALL LIGHT IN REACH AND BED ALARM ON.
--- NOTE | 2017-02-01 18:51 | NUR ---
patient was a bit upset, she needed to use the rest room, we got her up and to the commode, and thenshe got back in to bed. she didnt eat a lot of her dinner but that was because she had a late lunch.
--- NOTE | 2017-02-01 20:00 | NUR ---
PATIENT CONTINUES TO BE AWAKE AND TRYING TO GET OUT OF BED AND NEEDS FREQUENT REDIRECTION. BED ALARM ON.
--- NOTE | 2017-02-01 20:36 | NUR ---
NURSE NOTIFIED RE BP.
--- NOTE | 2017-02-01 21:00 | NUR ---
PATIENT UP TO BEDSIDE COMMODE AND VOIDED WITH 2 PERSON STANDBY ASSIST. SMALL SMEAR OF GRAYISH BROWN STOOL. PATIENT HELPED BACK TO BED. BED ALARM ON AND PATIENT STILL VERY CONFUSED AND TRYING TO GET OUT OF BED. VS WERE STABLE EXCEPT FOR SBP OF 87, HOWEVER PATIENT WOUND NOT STAY STILL FOR B/P AND KEPT FLEXING HER ARM. WILL TRY TO RECHECK PRESSURE WHEN SHE IS CALMER.
--- NOTE | 2017-02-01 21:04 | EKG ---
[facility] [address] [place] [address] Signed AV dual-paced rhythm Abnormal ECG When compared with ECG of 17-JAN-2017 12:04, Vent. rate has decreased BY 3 BPM Confirmed by DONIS HERNANDEZ MD ([id number]) on 02/01/2017 9:04:01 PM Electronically Signed By: DONIS HERNANDEZ MD 02/01/17 2104 PATIENT NAME: JORDAN VERGARA YASMEEN Electrocardiogram DATE OF : 32 PHYSICIAN: DONIS HERNANDEZ MD REPORT #: [id number] REPORT IS CONFIDENTIAL AND NOT TO BE RELEASED WITHOUT AUTHORIZATION
--- NOTE | 2017-02-01 22:12 | NUR ---
PATIENT IS STILL AWAKE AND CONFUSED AND CONTINUES TO TRY AND GET OUT OF BED. TOILETING AND FLUIDS BOTH OFFERED. PATIENT DENIES ANY PAIN.
--- NOTE | 2017-02-01 23:55 | NUR ---
ASSISTED THE NURSE WHILE RE INSERTING IV.
--- NOTE | 2017-02-02 00:22 | NUR ---
PATIENT HAD PULLED OUT HER IV AT 2320 AND A NEW 20g IV WAS PLACED IN HER LEFT FOREARM WITH 2 ATTEMPTS. SECURED WITH PLASTIC TAPE AND COBAN. PATIENT IS STILL FIDGETING AROUND IN HER BED, REDIRECTABLE, BUT ONLY FOR A SHORT TIME AND IS VERY CONFUSED.
--- NOTE | 2017-02-02 02:05 | NUR ---
RESTING AT TIMES, OTHER TIME AWAKE CONFUSED AND TRYING TO GET OUT OF BED. BED ALARM ON.
--- NOTE | 2017-02-02 04:05 | NUR ---
PATIENT HAS BEEN INCONTINENT AGAIN WITH A VERY LARGE AMOUNT OF URINE. ATTENDS AND BEDDING CHANGED AND PATIENT GIVEN ERICA-CARE. pATIENT IS NOW RESTING QUIETLY EYES CLOSED, RESPIRATIONS EVEN AND UNLABORED.
--- NOTE | 2017-02-02 05:21 | NUR ---
PATIENT HAS BEEN AWAKE MOST OF THE NIGHT WITH SHORT PERIODS OF SLEEP. WHEN AWAKE SHE TRIES TO GET OUT OF BED OR PULL OUT HER IV. I HAVE SPENT A GREAT DEAL OF TIME IN HER ROOM TONIGHT JUST REDIRECTING HER WHICH DOES WORK, BUT ONLY FOR A FEW MOMENTS. SHE HAS IV FLUID RUNNING AT100/HR IN HER LFA. SHE HAS USD THE COMMODE ONCE TO URINATE AND THEN HAS BEEN INCONTINENT A LARGE AMOUNT OF URINE X2. pATIENT HAS SCD'S ON BILATERALLY TO THE LOWER EXTREMITIES. LUNGS CLEAR THROUGHOUT AND BOWEL TONES ACTIVE TIMES 4. PASSING GAS BUT NO STOOLS ON THIS SHIFT EXCEPT A SMEAR ONCE WHEN WE CHANGED HER. CURRENTLY PATIENT IS SUPINE, EYES CLOSED, RESTING QUIETLY WITH EVEN AND REGULAR RESPIRATIONS. SHE IS ON A CARDIAC DIET.
--- NOTE | 2017-02-02 06:30 | NUR ---
PATIENT JUST TOOK HER PO AM MEDS WELL. SHE CONTINUES TO REST QUIETLY.
--- NOTE | 2017-02-02 07:36 | NUR ---
PT IN BED, TIA RESTRAINTS ARE ON HANDS, PT CONTINUES TO ATTEMPT TO PULL THESE OFF USING HER TEETH, BUT MITS ARE CURRENTLY ON. REDIRECTED PT TO LEAVE THESE IN PLACE TO PRESERVE HER LINES.
--- NOTE | 2017-02-02 09:13 | NUR ---
AT 0855, THIS RN TO PT'S ROOM. FLUX MIXER AND DAUGHTER AT BEDSIDE. PT CALM, RELAXED. REMOVED HAND MITS, ASSESSED HANDS AND WRISTS, WNL ASSESSMENT. PT OBSERVED FOR 15 MINUTES, NO ATTEMPTS TO PULL OUT IV TUBE. DAUGHTER REMAINING AT BEDSIDE. WILL LEAVE HAND MITS OFF AT THIS TIME.
--- NOTE | 2017-02-02 10:00 | NUR ---
ASSUMED CARE OF PT. RECIEVED REPORT FROM TRINH Wong R.N. PT CURRENTLY RESTING IN BED QUIETLY, EYES CLOSED, RESP EVEN AND UNLABORED. DAUGHTER AT BEDSIDE. BED RAILS UP, BED IN LOWEST POSITION. BED ALARM ON.
--- NOTE | 2017-02-02 11:59 | NUR ---
PT ATTEMPTED TO GET OUT OF BED, BED ALARM WENT OFF. PT ASSISTED BACK TO POSITION OF COMFORT IN BED. BED ALARM RESET. PT GIVEN TOWELS AND BLANKETS TO FOLD. IV INFUSING WNL AT THIS TIME. BED RAILS UP AND BED IN LOWEST POSITION. VISIBLE FROM NURSES STATION.
--- NOTE | 2017-02-02 12:15 | NUR ---
PT 2PA TO BSC. VOIDED WITHOUT DIFFICULTY. ASSISTED BACK TO BED. PT RESTING ON BACK WITH EYES CLOSED. GIVEN WARM BLANKET. BED RAILS UP, BED ALARM ON.
--- NOTE | 2017-02-02 12:50 | NUR ---
PT ASSISTED TO EAT. ONLY ATE A FEW BITES OF MAC AND CHEESE, MASHED POTATOES, AND PUDDING. PT GIVEN ENSURE TO SUPPLEMENT.
--- NOTE | 2017-02-02 15:13 | NUR ---
PT GIVEN SUPPOSITORY AND ASSISTED TO POSITION OF COMFORT. PT RESTING ON BACK WITH EYES CLOSED. BED ALARM ON.
--- NOTE | 2017-02-02 15:38 | NUR ---
Patient has been keeping busy today, she is currently resting.
--- NOTE | 2017-02-02 16:00 | NUR ---
PT ATTEMTED TO GET OUT OF BED. ASSISTED TO COMMODE. VOIDED. PT CURRENTLY SITTING AT EDGE OF BED WITH EZEKIEL VENCES SITTER. PT DRAWING AND COLORING PICTURES.
[2017-02-02] MEDS ORDERED: GABAPENTIN100 MG PO (16:48)
[2017-02-02] MEDS ORDERED: RISPERDAL0.25 MG PO (16:49)
[2017-02-02] MEDS ORDERED: POTASSIUM IV (16:51)
[2017-02-02] MEDS ORDERED: ZOFRAN8 MG PO (16:52)
--- NOTE | 2017-02-02 17:52 | NUR ---
PT HAS BEEN AGITATED. ATTEMPTING TO GET OUT OF BED FREQUENTLY, UNCONSOLABLE WITH ACTIVITIES TO KEEP HER BUSY. RECIEVED ORDER FROM DR. HERNANDEZ FOR IV HALDOL AND TO GIVE 1800 MEDS EARLY. PT MEDICATED AT THIS TIME. PT ASSISTED TO BSC AND BACK TO BED. CURRENTLY RESTING IN BED WITH EYES CLOSED. BED ALARM ON.
--- NOTE | 2017-02-02 18:56 | NUR ---
PT ATTEMPTING TO GET OUT OF BED. NOTED THAT PT PULLED OFF ATTENDS AND HAD LOOSE BM IN BED. PT ASSISTED TO BSC. LINENS AND GOWN CHANGED. PT ASSISTED BACK TO BED. RESTING IN BED WITH EYES CLOSED AT THIS TIME. BED ALARM ON.
--- NOTE | 2017-02-02 19:20 | NUR ---
REPORT RECV'D FROM TERRENCE ZAIDI. PT IN BED SLEEPING. ALL [address], FALL PAD ON FLOOR. BED ALARM IN PLACE. PT APPEARS DROWSY. IV INFUSING. NO FURTHER NEEDS AT THIS TIME. CALL LIGHT IN PLACE.
--- NOTE | 2017-02-02 20:11 | NUR ---
IN TO PT ROOM, PT ATTEMPTING TO GET OOB. BOOSTED BACK IN PLACE. WARM BLANKET GIVEN. PT RESTING AGAIN. ASSESSMENT COMPLETE. DISCUSSED WITH DR. DAVID MOORE FOR MEDICATION FOR AGGITATION THIS SHIFT. NO FURTHER NEEDS AT THIS TIME. CALL LIGHT IN REACH.
--- NOTE | 2017-02-02 23:13 | NUR ---
NO VITAL SIGN TAKING WHEN PATIENT IS ASLEEP, PER NURSE.
--- NOTE | 2017-02-02 23:23 | NUR ---
IN TO CHECK ON PT, PT APPEARS TO BE SLEEPING. NO APPARENT DISTRESS NOTED. IVF INFUSING. ALL [address], BED ALARM ON AND FALL PADS IN PLACE.
--- NOTE | 2017-02-03 01:53 | NUR ---
IN TO CHECK ON PT, PT APPEARS TO BE SLEEPING. SNORING SOFTLY. RR EVEN AND UNLABORED. NO APPARENT DISTRESS. IVF INFUSING. CALL LIGHT IN REACH.
--- NOTE | 2017-02-03 03:56 | NUR ---
IN TO CHECK ON PT, PT APPEARS TO BE SLEEPING. RR EVEN AND UNLABORED. PT SNORING SOFTLY. IVF INFUSING. ALL [address], BED ALARM ON AND FALL MAT IN PLACE.
--- NOTE | 2017-02-03 05:20 | NUR ---
PT HAS HAD UNEVENTFUL SHIFT, SLEPT WELL. PT IS ORIENTED TO SELF ONLY. LUNGS ARE CLEAR, PT IS ON RA. IS ON A CARDIAC DIET. IV IN L FORARM, D5 1/2 NS @ 50 MLS. PT IS A 1 PERSON ASSIST TO BSC. GIVEN HALDOL 2 MG ON PREVIOUS SHIFT FOR AGITATION, HAS NO REQUIRED REPEAT DOSE. LAST BM NOTED 02/02/2017.
--- NOTE | 2017-02-03 07:28 | NUR ---
REPORT RECEIVED AT BEDSIDE FROM ANDREW ZAIDI. SALES PROMOTION COORDINATOR AND RN LIFTED PT IN BED. 4 SIDERAILS UP TO PREVENT FALLS. BED ALARM ON. PT RESTING ON AND OFF. IVF INFUSING AT 50ML/HR. BM INCONTINENT OVERNIGHT. SODIUM AND POTASSIUM IMPROVED FROM YESTERDAY.
--- NOTE | 2017-02-03 08:30 | NUR ---
HAVE BEEN INTO PTS ROOM ON THREE DIFFERENT OCCASIONS ALREADY THIS MORNING, ALL THREE TIMES HER BED ALARM WAS GOING OFF. GOT PT UP TO BEDSIDE COMMODE AND SHE VOIDED 400. PT SAID SHE WAS NOT READY TO EAT HER BREAKFAST. AND IS RESTING NOW.
--- NOTE | 2017-02-03 08:30 | NUR ---
IS SLEEPING. WILL CHECK BACK LATER.
--- NOTE | 2017-02-03 10:34 | NUR ---
DAUGHTER ASSISTING PATIENT WITH EATING BREAKFAST. PHYSICAL THERAPY WORKED WITH PATIENT THIS MORNING AND CLEARED HER TO GO HOME. DAUGHTER UPDATED ON LABS AND PLAN OF CARE. PT UP IN CHAIR NOW WITH BED ALARM ON.
--- NOTE | 2017-02-03 11:48 | NUR ---
CALLED AND SPOKE WITH TATIANA AT [facility], PT IS SCHEDULED TO BE DC HOME TODAY.
[2017-02-03] MEDS ORDERED: WATER BOTTLE1 EACH PO (12:17)
[2017-02-03] MEDS ORDERED: WATER3780 ML PO (12:19)
--- NOTE | 2017-02-03 13:19 | NUR ---
FAXED COPY OF DC INSTRUCTIONS TO [facility].
== END 2017-02-03 13:00 | disposition home or self-care (01) | DRG 682 ==
LOC: ED 09:19 → MS 13:09
PROVIDERS: ADMIT Internal Medicine
PROC: 3E0234Z Introduction of Serum, Toxoid and Vaccine into Muscle, Percutaneous Approach (ICD-10-PCS; principal; 2017-02-01)
DX: N17.9 Acute kidney failure, unspecified (principal); G93.41 Metabolic encephalopathy; F03.91 Unspecified dementia, unspecified severity, with behavioral disturbance; R53.81 Other malaise; E03.9 Hypothyroidism, unspecified; K21.9 Gastro-esophageal reflux disease without esophagitis; I12.9 Hypertensive chronic kidney disease with stage 1 through stage 4 chronic kidney disease, or unspecified chronic kidney disease; N18.4 Chronic kidney disease, stage 4 (severe); I49.5 Sick sinus syndrome; Z66 Do not resuscitate; Z23 Encounter for immunization
CPT/HCPCS: 36415; 71010; 80053; 80069; 81001; 82570; 84300; 85025; 90662; 93005; 93010; 97116; 97162; 97530; G0008; J1630; J1650; J2405; J7030; J7042

== ENCOUNTER 2017-02-26 15:45 | Emergency (ER) | payer MEDICARE, OTHER ==
[~2017-02-26] VITALS: Ht 152.4 cm; Wt 49.9 kg
[~2017-02-26 15:45] MED LIST changes: +GABAPENTIN100 MG PO; +POTASSIUM IV; +RISPERDAL0.25 MG PO; +WATER BOTTLE1 EACH PO; +WATER3780 ML PO; +ZOFRAN8 MG PO
[2017-02-26] MEDS ORDERED: FERROUS GLUCON324 M1 PO (15:55)
[2017-02-26] MEDS ORDERED: K-TAB ER20 MEQ PO (15:56)
== END 2017-02-26 17:20 | disposition home or self-care (01) ==
LOC: ED 15:45
DX: R41.82 Altered mental status, unspecified (principal); I12.9 Hypertensive chronic kidney disease with stage 1 through stage 4 chronic kidney disease, or unspecified chronic kidney disease; N18.9 Chronic kidney disease, unspecified; E78.00 Pure hypercholesterolemia, unspecified; K21.9 Gastro-esophageal reflux disease without esophagitis; Z85.3 Personal history of malignant neoplasm of breast; Z95.0 Presence of cardiac pacemaker; Z90.710 Acquired absence of both cervix and uterus; Z88.5 Allergy status to narcotic agent; Z88.8 Allergy status to other drugs, medicaments and biological substances; Z79.899 Other long term (current) drug therapy
CPT/HCPCS: 80048; 85025; 99283; J7030

== ENCOUNTER 2017-03-09 12:56 | Emergency (ER) | payer MEDICARE, OTHER ==
[~2017-03-09] VITALS: Ht 152.4 cm; Wt 49.9 kg
[~2017-03-09 12:56] MED LIST changes: +FERROUS GLUCON324 M1 PO; +K-TAB ER20 MEQ PO
== END 2017-03-09 14:10 | disposition home or self-care (01) ==
LOC: ED 12:56
DX: F03.90 Unspecified dementia, unspecified severity, without behavioral disturbance, psychotic disturbance, mood disturbance, and anxiety (principal); I12.9 Hypertensive chronic kidney disease with stage 1 through stage 4 chronic kidney disease, or unspecified chronic kidney disease; N18.9 Chronic kidney disease, unspecified; E78.00 Pure hypercholesterolemia, unspecified; E87.6 Hypokalemia; E83.51 Hypocalcemia; E83.42 Hypomagnesemia; K21.9 Gastro-esophageal reflux disease without esophagitis; Z95.0 Presence of cardiac pacemaker; Z85.3 Personal history of malignant neoplasm of breast; Z88.5 Allergy status to narcotic agent; Z88.8 Allergy status to other drugs, medicaments and biological substances; Z79.899 Other long term (current) drug therapy
CPT/HCPCS: 51798; 99283